=== PATIENT | male | born 1940 | race Caucasian/White ===

== ENCOUNTER 2020-04-10 16:01 | Emergency (ER) | payer OTHER, MEDICAID ==
[~2020-04-10] VITALS: Ht 172.7 cm; Wt 90.7 kg
[2020-04-10 16:11] VITALS: BP_SYST 141
--- NOTE | 2020-04-10 16:42 | NUR ---
Patient to [facility] for evaluation. Side rails up.
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
--- NOTE | 2020-04-10 16:43 | NUR ---
Phleb at bedside.
--- NOTE | 2020-04-10 17:01 | NUR ---
ER at bedside examining patient.
[2020-04-10 17:06] LABS: BASOPHILS # (AUTO) 0.2 K/uL (0.0-0.2); EOSINOPHILS % (AUTO) 0.2 % (0.0-4.0); HEMATOCRIT 33.6 % (36-54); HEMOGLOBIN 11.1 g/dL (14.0-18.0); LYMPHOCYTES # (AUTO) 0.7 K/uL (1.0-5.5); LYMPHOCYTES % (AUTO) 8.7 % (20.5-51.5); MEAN CORPUSCULAR HEMOGLOBIN 33 pg (27-31); MEAN CORPUSCULAR HGB CONC 33 % (32-36); MEAN CORPUSCULAR VOLUME 101 fL (79.0-98.0); MONOCYTES # (AUTO) 1.1 K/uL (0.0-1.0); MONOCYTES % (AUTO) 14.4 % (1.7-9.3); NEUTROPHILS # (AUTO) 5.9 K/uL (1.8-7.7); NEUTROPHILS % (AUTO) 73.7 % (40.0-70.0); PLATELET COUNT (AUTO) 184 K/uL (130-430); RED BLOOD CELL COUNT(AUTO) 3.34 MIL/uL (4.2-6.2)
[2020-04-10 17:09] LABS: ANION GAP 10 (5-15); CALCIUM 8.6 mg/dL (8.4-11.0); CHLORIDE 106 mmol/L (98-107); CREATININE 2.26 mg/dL (0.55-1.30); GLUCOSE 118 mg/dL (70-99); POTASSIUM 4.3 mmol/L (3.5-5.1); SODIUM SERUM 140 mmol/L (136-145); UREA NITROGEN, BLOOD 43 mg/dL (8-21)
[2020-04-10 17:15] LABS: ALANINE AMINOTRANSFERASE 59 U/L (12-78); ALBUMIN 3.2 g/dL (3.4-4.8); ASPARTATE AMINOTRANSFERASE 76 U/L (10-37); TOTAL BILIRUBIN 0.7 mg/dL (0.0-1.0)
[2020-04-10 17:16] LABS: CHOLESTEROL 163 mg/dL (<200); HDL CHOLESTEROL 51 mg/dL (>45); LDL CHOLESTEROL 74 mg/dL (<100); TRIGLYCERIDES 117 mg/dL (30-150)
[2020-04-10 17:22] LABS: ALCOHOL, BLOOD < 3 mg/dL (<10)
[2020-04-10 17:23] LABS: ACETAMINOPHEN < 1 ug/mL (1-30)
[2020-04-10 17:45] VITALS: BP_SYST 141
--- NOTE | 2020-04-10 17:45 | NUR ---
Patient to be transferred to [facility] Room 50 B. Is being transferred due to higher level of care. Receiving facility has accepting physician and available space. ER physician has signed transfer form. Patient or responsible libertarian has agreed to transfer and signed form. Patient belongings inventoried and will be sent with patient. Copy of nursing notes, lab reports, EKG, Physicians Orders and X-rays to be sent with patient. Report called to YASSINE Mancia at receiving facility. Receiving physician is Dr. Cathy trotter service has been called for transfer.
== END 2020-04-10 17:45 ==
LOC: EDBD → SED 16:01
DX: Z13.30 Encounter for screening examination for mental health and behavioral disorders, unspecified (principal)
CPT/HCPCS: 36415; 80053; 80061; 83036; 85025; 87081; 99285; G0480; G0481; G0482

== ENCOUNTER 2020-04-12 11:04 | Outpatient (CLI) | payer OTHER | END 2020-04-12 20:53 | disposition home or self-care (01) | LOC: SCT 11:04 | PROVIDERS: ATTEND Psychiatry & Neurology Psychiatry | DX: G31.9 Degenerative disease of nervous system, unspecified (principal); I62.00 Nontraumatic subdural hemorrhage, unspecified | CPT/HCPCS: 70450-TC ==

== ENCOUNTER 2020-07-20 23:14 | Inpatient (IN) | payer OTHER, MEDICAID, SELFPAY ==
[~2020-07-20] VITALS: Ht 170.2 cm; Wt 62.1 kg
[2020-07-20 23:14] VITALS: BP_SYST 104
--- NOTE | 2020-07-20 23:14 | NUR ---
Patient to ER bed 6 to gown for evaluation. Side rails up, place patient on cardiac cath lab manager and pulse ox.
--- NOTE | 2020-07-20 23:20 | NUR ---
# 20 gauge angiocath placed to LAC. Use of asceptic technique. Opsite placed over site. Blood return noted. Blood for lab drawn from site. Flushed with 10 cc of normal saline. No evidence of infiltration noted. Patient tolerated well.
[2020-07-20] MEDS ORDERED: NACL 0.9% 1,000 ML IV ONE (23:30)
--- NOTE | 2020-07-20 23:30 | NUR ---
Dr. Ding bedside for pt eval
--- NOTE | 2020-07-20 23:35 | NUR ---
Moy ACOSTA to ED from [facility] for evaluation of a 1-week history of reduced eating and drinking associated with dehydration and generalized weakness. Patient is under the care of Dr. Sagastume, who requested patient be brought to ED for further evaluation and treatment. No relieving or exacerbating factors. No other complaints noted VSS no s/s of acute distress Resting on gurney rails up
[2020-07-20 23:39] LABS: BASOPHILS % (AUTO) 0.3 % (0.0-2.0); EOSINOPHILS % (AUTO) 0.1 % (0.0-4.0); HEMOGLOBIN 13.4 g/dL (14.0-18.0); LYMPHOCYTES # (AUTO) 1.2 K/uL (1.0-5.5); LYMPHOCYTES % (AUTO) 11.1 % (20.5-51.5); MEAN CORPUSCULAR HEMOGLOBIN 32 pg (27-31); MEAN CORPUSCULAR HGB CONC 33 % (32-36); MEAN CORPUSCULAR VOLUME 99 fL (79.0-98.0); MONOCYTES # (AUTO) 0.4 K/uL (0.0-1.0); MONOCYTES % (AUTO) 4.1 % (1.7-9.3); NEUTROPHILS # (AUTO) 9.1 K/uL (1.8-7.7); NEUTROPHILS % (AUTO) 84.4 % (40.0-70.0); PLATELET COUNT (AUTO) 271 K/uL (130-430); RED BLOOD CELL COUNT(AUTO) 4.16 MIL/uL (4.2-6.2); RED CELL DISTRIBUTION WIDTH 14.8 % (9.0-15.0); WHITE BLOOD COUNT (AUTO) 10.8 K/uL (4.8-10.8)
[2020-07-20] MEDS ORDERED: LEVO150T8 PO (23:39)
--- NOTE | 2020-07-20 23:40 | NUR ---
# 16 FR Alfonso catheter with use of sterile technique. Bedside drainage bag placed below level of bladder. Urine sample collected and sent to lab. Pt tolerated procedure well. Patient arrived with alfonso in place, changed due to standard of practice prior to admission. Patient unable to toilet self.
[2020-07-20] MEDS ORDERED: PRO40 PO (23:41)
[2020-07-20] MEDS ORDERED: LAMO50TA3 PO (23:42)
[2020-07-20] MEDS ORDERED: APIX5TAB4 PO (23:42)
--- NOTE | 2020-07-20 23:43 | NUR ---
swabbed Covid-19 as order and sent to lab.
[2020-07-20] MEDS ORDERED: SENN8.6T19 PO (23:44)
[2020-07-20] MEDS ORDERED: VALP250C3 PO (23:45)
[2020-07-20] MEDS ORDERED: CLON1TAB12 PO (23:45)
[2020-07-20] MEDS ORDERED: NOR10 PO (23:46)
[2020-07-20] MEDS ORDERED: MULT-1100 PO (23:47)
[2020-07-20] MEDS ORDERED: POLY17PO4 PO (23:48)
[2020-07-20] MEDS ORDERED: QUET50TA PO (23:49)
[2020-07-20] MEDS ORDERED: QUET150T2 PO (23:49)
[2020-07-20] MEDS ORDERED: TAMS-11 PO (23:50)
[2020-07-20] MEDS ORDERED: FINA5TAB3 PO (23:50)
[2020-07-20] MEDS ORDERED: METO-540 (23:51)
--- NOTE | 2020-07-20 23:53 | NUR ---
Radiology at bedside for Portable X Ray, well tolerated
[2020-07-20 23:55] LABS: ANION GAP 8 (5-15); CALCIUM 9.3 mg/dL (8.4-11.0); CREATININE 2.16 mg/dL (0.55-1.30); GLUCOSE 145 mg/dL (70-99); POTASSIUM 3.5 mmol/L (3.5-5.1); UREA NITROGEN, BLOOD 63 mg/dL (8-21)
[2020-07-20 23:56] LABS: INR 1.4 (0.80-1.20); PROTHROMBIN TIME 13.9 SECS (9.5-12.5)
--- NOTE | 2020-07-20 23:56 | NUR ---
Medication reconciliation completed with information provided by [facility]. Any prior medication reconciliation on file was reviewed and corrected.
[2020-07-21 00:03] LABS: ALANINE AMINOTRANSFERASE 19 U/L (12-78); ALBUMIN 2.3 g/dL (3.4-4.8); ASPARTATE AMINOTRANSFERASE 34 U/L (10-37); TOTAL BILIRUBIN 0.4 mg/dL (0.0-1.0)
[2020-07-21 00:05] LABS: CHLORIDE 124 mmol/L (98-107); SODIUM SERUM 162 mmol/L (136-145)
[2020-07-21 00:17] LABS: BILIRUBIN,URINE NEGATIVE (NEGATIVE); BLOOD, URINE NEGATIVE (NEGATIVE); CLARITY/URINE CLEAR (CLEAR); COLOR,URINE YELLOW (YELLOW); GLUCOSE,URINE NEGATIVE (NEGATIVE); KETONES,URINE TRACE (NEGATIVE); LEUKOCYTE ESTERASE ,URINE NEGATIVE (NEGATIVE); NITRITE, URINE NEGATIVE (NEGATIVE); PH,URINE 5.5 (5.0-8.0); PROTEIN URINE TRACE (NEGATIVE); UROBILINOGEN,URINE 0.2 (0.2-1.0)
[2020-07-21] MEDS ORDERED: LORazepam 2 MG/ML VIAL IVP ONE (00:30)
--- NOTE | 2020-07-21 00:39 | NUR ---
VSS, pt remains "itchy" scratching on shoulders and arms and legs. Dr. Ding aware.
[2020-07-21] MEDS ORDERED: cefTRIAXone 1 GM in D5W 50 ML IV ONE (00:45)
[2020-07-21] MEDS ORDERED: KCL 20 mEq in D5/0.45NS 1000mL 1,000 ML IV SCH (00:45)
[2020-07-21] MEDS ORDERED: cefTRIAXone 1 GM VIAL ONE (01:01)
[2020-07-21] MEDS ORDERED: DIPHENHYDRAMINE INJ 50 MG/ML VIAL IVP ONE (01:15)
--- NOTE | 2020-07-21 01:18 | NUR ---
ADMIT NOTE Received pt from ER to the floor with a diagnosis of dehydration. Admission process initiated. patient oriented to pain management, safety and call light-pt is confused.
--- NOTE | 2020-07-21 01:20 | NUR ---
Patient will be admitted to care of Dr. Sagastume. Admitted to Tele unit. Will go to room 121. Belongings list completed. Complete and up to date summary report printed. SBAR report to be given at bedside with opportunity for questions.
--- NOTE | 2020-07-21 01:20 | NUR ---
Transfer to Tele via ACLS protocol. Licensed nurse present. IV present no signs or symptoms of infiltration.
[2020-07-21] MEDS ORDERED: DIPHENHYDRAMINE INJ 50 MG/ML VIAL ONE (01:25)
[2020-07-21 01:36] VITALS: BP_SYST 127
[2020-07-21] MEDS ORDERED: KCL 20 mEq in D5/0.45NS 1000mL 1,000 ML IV ONE (02:18)
--- NOTE | 2020-07-21 02:21 | NUR ---
according to [facility] where pt came from, they didn't give the flu vaccine to the pt.
--- NOTE | 2020-07-21 04:13 | NUR ---
Rounds: Patient is asleep in bed. No acute distress on 4L NC. IV site to left AC receiving IV fluids as ordered. Safety, fall precautions in place. Call light is with patient. Will continue to monitor.
--- NOTE | 2020-07-21 06:02 | NUR ---
Closing note: Patient is resting quietly in bed, no acute distress. Even, unlabored breathing on 4L O2 via nasal cannula. IV fluids infusing as ordered to left AC, no infiltration. Lopes catheter draining yellow urine to gravity. All needs met. Safety, fall, COVID isolation precautions in place. Will endorse care to dayshift RN.
[2020-07-21] MEDS ORDERED: FLU VACC QS2020-21(65UP)/PF 0.7 ML/SYRINGE I.M. PRN (06:15)
--- NOTE | 2020-07-21 06:32 | NUR ---
Influenza vaccine: Patient is alert and oriented to name only. Called and spoke with patient's daughter Erika Aragon at [phone] per face sheet and explained influenza vaccine indications and side effects. Okay to administer vaccine per patient's daughter. Called off-site pharmacy to have medication verified for administration, but line was silent after connecting to the pharmacy leasing representative. Will endorse to dayshift to have day pharmacy verify.
--- NOTE | 2020-07-21 08:00 | NUR ---
Initial notes In bed, asleep, breathing even and unlabored. no acute distress noted. On o2 4l sat at 95%. afebrile. IVF infusing well. Safety precaution observed. bed alarm on. Sinus on the monitor.
[2020-07-21 08:23] VITALS: BP_SYST 133
--- NOTE | 2020-07-21 09:23 | NUR ---
Nutrition Update Leo Scale 12 noted. Pt admitted for dehydration. Diet: mechanical soft BMI: 21.5 kg/m2 RD to follow per nutrition care standards.
--- NOTE | 2020-07-21 11:30 | NUR ---
Notes Patient keeps moving, tried to give water to drink but patient refused. No distress noted. IVF infusing well. will monitor.
[2020-07-21 12:00] VITALS: BP_SYST 111
--- NOTE | 2020-07-21 13:15 | NUR ---
MD ROUNDS Seen by Dr. Contreras at bedside.
[2020-07-21 13:24] LABS: BASOPHILS # (AUTO) 0.1 K/uL (0.0-0.2); BASOPHILS % (AUTO) 0.5 % (0.0-2.0); EOSINOPHILS % (AUTO) 0.4 % (0.0-4.0); HEMATOCRIT 38.7 % (36-54); HEMOGLOBIN 12.5 g/dL (14.0-18.0); LYMPHOCYTES # (AUTO) 1.1 K/uL (1.0-5.5); LYMPHOCYTES % (AUTO) 9.3 % (20.5-51.5); MEAN CORPUSCULAR HEMOGLOBIN 32 pg (27-31); MEAN CORPUSCULAR HGB CONC 32 % (32-36); MEAN CORPUSCULAR VOLUME 99 fL (79.0-98.0); MONOCYTES # (AUTO) 0.5 K/uL (0.0-1.0); MONOCYTES % (AUTO) 4.3 % (1.7-9.3); NEUTROPHILS % (AUTO) 85.5 % (40.0-70.0); PLATELET COUNT (AUTO) 256 K/uL (130-430); RED BLOOD CELL COUNT(AUTO) 3.93 MIL/uL (4.2-6.2); RED CELL DISTRIBUTION WIDTH 14.6 % (9.0-15.0); WHITE BLOOD COUNT (AUTO) 11.7 K/uL (4.8-10.8)
[2020-07-21 13:41] LABS: ALANINE AMINOTRANSFERASE 20 U/L (12-78); ALBUMIN 2.3 g/dL (3.4-4.8); ANION GAP 13 (5-15); ASPARTATE AMINOTRANSFERASE 38 U/L (10-37); CALCIUM 8.1 mg/dL (8.4-11.0); CREATININE 1.73 mg/dL (0.55-1.30); GLUCOSE 96 mg/dL (70-99); POTASSIUM 3.7 mmol/L (3.5-5.1); TOTAL BILIRUBIN 0.4 mg/dL (0.0-1.0); UREA NITROGEN, BLOOD 60 mg/dL (8-21)
[2020-07-21 13:51] LABS: CHLORIDE 124 mmol/L (98-107); SODIUM SERUM 163 mmol/L (136-145)
[2020-07-21] MEDS ORDERED: POLYETHYLENE GLYCOL 3350, 17 GM/ POWD.PACK PO PRN (14:00)
[2020-07-21] MEDS ORDERED: LAMOTRIGINE PO SCH (14:00)
[2020-07-21] MEDS ORDERED: SENNOSIDES 8.6 MG TABLET PO PRN (14:00)
--- NOTE | 2020-07-21 14:24 | NUR ---
CONSULTATION PAGED/CALLED Reason for Consultation: SCHIZOPHRENIA Person Who was Notified: EDDIE Consulting Physician: [employer] Supervisor Specialty: PSYCH Ordering Physician: ALMITA ARELLANO IS [employer] FOR [employer]
[2020-07-21] MEDS ORDERED: VALPROIC ACID 250 MG CAPSULE (DEPAKENE) PO ONE (15:00)
[2020-07-21] MEDS ORDERED: PANTOPRAZOLE SODIUM 40 MG TAB PO ONE (15:00)
[2020-07-21] MEDS ORDERED: QUEtiapine FUMARATE 25 MG TABLET PO ONE (15:00)
[2020-07-21] MEDS ORDERED: METOPROLOL SUCCINATE 25 MG TAB.SR.24H (TOPROL XL) PO ONE (15:00)
[2020-07-21] MEDS ORDERED: MULTIVITS,CA,MINERALS/IRON/FA 1 TABLET PO ONE (15:00)
[2020-07-21] MEDS ORDERED: LamoTRIgine 25 MG TABLET PO ONE (15:00)
[2020-07-21] MEDS ORDERED: APIXABAN 2.5 MG TABLET PO ONE (15:00)
--- NOTE | 2020-07-21 15:15 | NUR ---
Notes Patient's is pulling out his Iv and removing his monitor, pt also aggressive and combative when trying to touch him.
--- NOTE | 2020-07-21 15:22 | NUR ---
NOTIFIED FAMILY AND MD RE-RESTRAINT DR RECIO MADE AWARE THAT PATIENT IS PULLING OUT MEDICAL LINES, NAKED, KEPT REMOVING HIS CLOTHES. AGITATED, COMBATIVE, ORDERED TO PUT RESTRAINT FOR PATIENT'S SAFETY. CHARLIE DAUGHTER MADE AWARE AND AGREED TO PUT THE RESTRAINT AND UNDERSTAND THAT PATIENT IS DEMENTED, BIPOLAR.
[2020-07-21] MEDS: KCL 20 mEq in D5W 1000 mL 1,000 ML IV SCH (15:52)
[2020-07-21 16:00] VITALS: BP_SYST 125
--- NOTE | 2020-07-21 16:00 | NUR ---
MEDS- PT DOES NOT WANT TO TAKE ANYTHING BY MOUTH. REFUSED TO EAT, DRINK AND TO TAKE HIS MEDS THAT WAS PUT IN APPLE SAUCE AT THIS TIME.
[2020-07-21] MEDS ORDERED: LORazepam 2 MG/ML VIAL IVP PRN (18:15)
--- NOTE | 2020-07-21 18:30 | NUR ---
Notes- Awake, does not follow command, does not open is mouth when you tried to feed him at this time. on bilateral wrist restraints, circulation intact. IVF infusing well. No acute distress noted. will endorse
--- NOTE | 2020-07-21 19:45 | NUR ---
Pt was received lying in bed awake and oriented to his name only. Pt is confused and disoriented x3. Pt is on oxygen at 3L/min per NC and Oxygen saturation is 100%. No respiratory distress or seizure activity noted. Bilateral soft wrist restraints are on and no circulatory impairment noted. Lopes Catheter to gravity drainage is draining yellowish urine. IVF of D5W + 20 Meq KCL is infusing well in LAC at 75ml/hr without any signs of infiltration. Fall, Droplet Isolation, Seizure and Safety precautions are in place.
[2020-07-21 20:00] VITALS: BP_SYST 112
[2020-07-21] MEDS ORDERED: VALPROIC ACID 250 MG CAPSULE (DEPAKENE) PO SCH (21:00)
[2020-07-21 21:01] LABS: ANION GAP 9 (5-15); CALCIUM 8.7 mg/dL (8.4-11.0); CREATININE 1.59 mg/dL (0.55-1.30); GLUCOSE 104 mg/dL (70-99); POTASSIUM 3.6 mmol/L (3.5-5.1); UREA NITROGEN, BLOOD 58 mg/dL (8-21)
[2020-07-21 21:05] LABS: CHLORIDE 127 mmol/L (98-107); SODIUM SERUM 163 mmol/L (136-145)
--- NOTE | 2020-07-21 21:36 | NUR ---
PAGED PAGED DOCTOR RECIO FOR CRITICAL LABS
--- NOTE | 2020-07-21 21:38 | NUR ---
Critical Lab results (Sodium 163 and Chloride 127) relayed to Dr. Contreras and no new orders given.
[2020-07-21] MEDS: APIXABAN 2.5 MG TABLET PO SCH (21:39)
[2020-07-21] MEDS: TAMSULOSIN HCL 0.4 MG CAP PO SCH (21:40)
[2020-07-21] MEDS: FINASTERIDE 5 MG TABLET (PROSCAR) PO SCH (21:41)
[2020-07-21] MEDS: MIRTAZAPINE 15 MG TABLET PO SCH (21:41)
[2020-07-21] MEDS: LamoTRIgine 25 MG TABLET PO SCH (21:41)
[2020-07-21] MEDS: QUEtiapine FUMARATE 25 MG TABLET PO SCH (21:41)
--- NOTE | 2020-07-21 23:00 | NUR ---
No respiratory distress or seizure activity noted. IVF is infusing well in [facility].
[2020-07-21] MEDS: cefTRIAXone 1 GM in D5W 50 ML IV SCH (23:24)
[2020-07-22] VITALS (7 sets, daily range): BP systolic 125–143
--- NOTE | 2020-07-22 01:00 | NUR ---
Pt is resting quietly in bed. No seizure activity or respiratory distress noted. IVF is infusing well in LAC. Fall, Droplet Isolation, Seizure and Safety precautions are in place.
[2020-07-22 02:31] LABS: BILIRUBIN,URINE NEGATIVE (NEGATIVE); BLOOD, URINE 2+ (NEGATIVE); CLARITY/URINE CLEAR (CLEAR); COLOR,URINE YELLOW (YELLOW); GLUCOSE,URINE NEGATIVE (NEGATIVE); KETONES,URINE TRACE (NEGATIVE); LEUKOCYTE ESTERASE ,URINE NEGATIVE (NEGATIVE); NITRITE, URINE NEGATIVE (NEGATIVE); PROTEIN URINE TRACE (NEGATIVE); UROBILINOGEN,URINE 0.2 (0.2-1.0)
[2020-07-22 02:42] LABS: BACTERIA,URINE FEW /HPF (None Seen); RBC,URINE 20-50 /HPF (0-3); WBC,URINE 0-3 /HPF (0-3)
--- NOTE | 2020-07-22 03:00 | NUR ---
Pt is sleeping without any respiratory distress noted. IVF is infusing well in LAC. Bed alarm is on and bed is in the lowest/locked positions.
--- NOTE | 2020-07-22 05:00 | NUR ---
No acute distressnoted at this time. IVF is infusing well in [facility]. Bed alarm is on and bed is in the lowest/locked positions.
[2020-07-22] MEDS: KCL 20 mEq in D5W 1000 mL 1,000 ML IV SCH ×3 (06:18→16:41)
[2020-07-22] MEDS: LEVOTHYROXINE SODIUM 0.15 MG TABLET PO SCH (06:24)
--- NOTE | 2020-07-22 06:24 | NUR ---
Pt is fully awake and not in any distress. Scheduled Levothyroxine tablet given with apple juice after it was crushed. No difficulty swallowing noted. IVF is infusing well in LAC.
--- NOTE | 2020-07-22 07:20 | NUR ---
Opening Note patient in bed resting, alfonso catheter intact and draining by gravity, IV site is patent and infusing well, bed locked and at low position, call light within reach, fall/aspiration/seizure precautions put in place, will monitor patient for any changes.
[2020-07-22 07:30] LABS: BASOPHILS % (AUTO) 0.4 % (0.0-2.0); EOSINOPHILS # (AUTO) 0.5 K/uL (0.0-0.4); EOSINOPHILS % (AUTO) 4.6 % (0.0-4.0); HEMATOCRIT 38.2 % (36-54); HEMOGLOBIN 12.2 g/dL (14.0-18.0); LYMPHOCYTES # (AUTO) 1.4 K/uL (1.0-5.5); LYMPHOCYTES % (AUTO) 13.5 % (20.5-51.5); MEAN CORPUSCULAR HEMOGLOBIN 32 pg (27-31); MEAN CORPUSCULAR HGB CONC 32 % (32-36); MEAN CORPUSCULAR VOLUME 99 fL (79.0-98.0); MONOCYTES # (AUTO) 0.7 K/uL (0.0-1.0); MONOCYTES % (AUTO) 6.5 % (1.7-9.3); NEUTROPHILS # (AUTO) 7.5 K/uL (1.8-7.7); PLATELET COUNT (AUTO) 249 K/uL (130-430); RED BLOOD CELL COUNT(AUTO) 3.86 MIL/uL (4.2-6.2); RED CELL DISTRIBUTION WIDTH 14.7 % (9.0-15.0)
[2020-07-22 08:05] LABS: ALANINE AMINOTRANSFERASE 24 U/L (12-78); ALBUMIN 2.1 g/dL (3.4-4.8); ANION GAP 9 (5-15); ASPARTATE AMINOTRANSFERASE 35 U/L (10-37); CALCIUM 8.7 mg/dL (8.4-11.0); CREATININE 1.41 mg/dL (0.55-1.30); GLUCOSE 95 mg/dL (70-99); POTASSIUM 3.8 mmol/L (3.5-5.1); TOTAL BILIRUBIN 0.2 mg/dL (0.0-1.0); UREA NITROGEN, BLOOD 51 mg/dL (8-21)
[2020-07-22 08:20] LABS: SODIUM SERUM 162 mmol/L (136-145)
[2020-07-22 08:21] LABS: CHLORIDE 126 mmol/L (98-107)
[2020-07-22] MEDS: APIXABAN 2.5 MG TABLET PO SCH ×2 (09:14→21:00)
[2020-07-22] MEDS: MULTIVITS,CA,MINERALS/IRON/FA 1 TABLET PO SCH (09:15)
[2020-07-22] MEDS: PANTOPRAZOLE SODIUM 40 MG TAB PO SCH (09:15)
[2020-07-22] MEDS: QUEtiapine FUMARATE 25 MG TABLET PO SCH ×3 (09:15→21:00)
[2020-07-22] MEDS: LamoTRIgine 25 MG TABLET PO SCH ×2 (09:15→21:00)
[2020-07-22] MEDS: METOPROLOL SUCCINATE 25 MG TAB.SR.24H (TOPROL XL) PO SCH (09:16)
--- NOTE | 2020-07-22 09:26 | NUR ---
RN Rounds/Medications patient in bed resting, no signs of distress noted, respirations even and unlabored, vital signs stable, administered medications ordered per MD, patient tolerated well, patient ate a few small bites of his breakfast and refused to eat the rest of his breakfast, safety measures were maintained, will continue to monitor patient for any changes.
[2020-07-22] MEDS ORDERED: VALPROIC ACID ORAL SYRUP 250 MG/5 ML UDC PO ONE (11:30)
[2020-07-22] MEDS ORDERED: amLODIPine BESYLATE 10 MG TABLET PO ONE (12:45)
--- NOTE | 2020-07-22 12:45 | NUR ---
RN Rounds/Foam dressings placed patient in bed resting, no signs of distress noted, respirations even and unlabored, patient ate 3 teaspoons of food and refused to eat the rest of his lunch, foam dressings were placed on patients feet and knee, safety and isolation measures were maintained.
--- NOTE | 2020-07-22 13:07 | NUR ---
RN Rounds/medication patient in bed resting, no signs of distress noted, patient refused to take medication ordered per MD at this time, no other needs at this time, safety measures maintained, will continue to monitor patient for any changes.
--- NOTE | 2020-07-22 14:30 | NUR ---
Spoke to MD ben Contreras over the phone patient's covid results and swallow evaluation, will follow up with new orders.
--- NOTE | 2020-07-22 16:08 | NUR ---
RN Rounds/Vital signs patient in bed laying down, respirations even and unlabored, vital signs within normal limits, administered medication ordered per MD, patient tolerated well, safety measures maintained.
--- NOTE | 2020-07-22 18:40 | NUR ---
Closing Note patient in bed resting, a/o x 1, reoriented patient to place time and event, respirations even and unlabored, safety measures maintained through out shift, bed locked and at low position, call light within reach, fall aspiration and seizure precautions maintained, endorsed patient care to oncoming shift commander nurse.
--- NOTE | 2020-07-22 19:15 | NUR ---
change of shift.pt.presents affect;aggressive.loc:confused.language barrier extant;mongolian.i have attended to the pt.in mongolian; to facilitate communication.pt.presents non-verbal speech status.pt.presents alfonso cath intact;patent urine content.pt.presents iv access intact;patent iv fluids infusing.pt.receiving the administration o2 therapy via the nasal cannulae.general status stable. respiratory status stable.call light/telephone w/in access of the pt.
[2020-07-22 19:53] LABS: POTASSIUM 4.4 mmol/L (3.5-5.1); SODIUM SERUM 158 mmol/L (136-145)
[2020-07-22 19:57] LABS: ANION GAP 11 (5-15); CALCIUM 8.1 mg/dL (8.4-11.0); CHLORIDE 124 mmol/L (98-107); GLUCOSE 124 mg/dL (70-99); UREA NITROGEN, BLOOD 44 mg/dL (8-21)
--- NOTE | 2020-07-22 20:00 | NUR ---
pt.assessed.v/s assessed values w/in normal limits.per flacc pain mgx pt.absent facial grimaces/body posturing.pt assessed for cleanliness.pt.repositioned.iv access intact;patent iv fluids infusing.alfonso cath intact;patent urine content present.i attempted to converse w the pt.pt.did not verbally respond. general status stable.respiratory status stable;unlabored;02-sat%=98%.restraints assessed in place.skin/circulation assessed wnl.call light/telephone placed w/in access of the pt. lab page.i was apprised of a critical lab value.to page w/the chemistry lab values had ordered earlier.
--- NOTE | 2020-07-22 20:16 | NUR ---
Paged Dr. Contreras, systems development consultant for Dr. Sagastume s/w Melvina
[2020-07-22] MEDS: MIRTAZAPINE 15 MG TABLET PO SCH (21:00)
[2020-07-22] MEDS: VALPROIC ACID ORAL SYRUP 250 MG/5 ML UDC PO SCH (21:00)
[2020-07-22] MEDS: TAMSULOSIN HCL 0.4 MG CAP PO SCH (21:00)
[2020-07-22] MEDS: FINASTERIDE 5 MG TABLET (PROSCAR) PO SCH (21:00)
--- NOTE | 2020-07-22 21:00 | NUR ---
2100pmedications.i have attempted to administer the medications;po to no avail.pt.refused to ingest the medications.i attempted a trial swallow capacity w apple sauce p/t to the administration of the 2100pmedications.pt.had refused the apple sauce.
--- NOTE | 2020-07-22 22:00 | NUR ---
pt.assessed.pt.assessed for cleanliness.pt repositioned.iv access intact;patent iv fluids infusing.per flacc pain mgx pt.absent facial grimaces/body posturing.alfonso cath intact;patent urine content present.general status stable.respirtory status stable;unlabored: 02-sat%=98%.call light/telephone placed w/in access of the pt.restraints;wrist,bilateral assessed intact skin/circulation assessed wnl.
--- NOTE | 2020-07-23 | NUR ---
pt.assessed.v/s assessed values w/in normal limits.per flacc pain mgx pt.absent facial grimaces/body/posturing.iv access intact; patent iv fluids infusing.i have administered rocephin;abx ivpb midnight.dose.pt.assessed for cleanliness.pt.repositioned.restraints assessed intact.skin/circulation wnl. general status stable.respiratory status stable;unlabored.02-sat%=98%.call light/telephone placed w/in access of the pt.alfonso cath intact;patent urine content present.
[2020-07-23] MEDS: cefTRIAXone 1 GM in D5W 50 ML IV SCH ×2 (00:36→23:50)
[2020-07-23] MEDS: KCL 20 mEq in D5W 1000 mL 1,000 ML IV SCH ×2 (00:38→04:47)
--- NOTE | 2020-07-23 02:00 | NUR ---
pt.assessed.pt.assessed for cleanliness.pt.repositioned.pt.presents affect;restless.restraints assessed in place:skin/circulation assessed wnl.per flacc pain mgx pt.absent facial grimaces/body posturing.general status stable.respiratory status stable;unlabored:02-sat%=96%.call light/telephone placed w/in access of the pt.iv acces intact;patent iv fluids infusing.
[2020-07-23 03:46] VITALS: BP_SYST 130
--- NOTE | 2020-07-23 05:46 | NUR ---
Swallow Eval Consult Called and left a message to Angie regarding swallow eval, ordered by Dr. Contreras
[2020-07-23] MEDS: LEVOTHYROXINE SODIUM 0.15 MG TABLET PO SCH (06:12)
--- NOTE | 2020-07-23 06:12 | NUR ---
pt.assessed.i have attempted a trial swallow capacity w apple sauce.pt.has refused the attempt to ingest oral medication;synthroid not administered.pt.assessed for cleanliness.pt.repositioned.iv access intact;patent iv fluids infusing.alfonso cath intact;patent urine content present.per flacc pain mgx pt.absent facial grimaces/body posturing.call light/telephone placed w/in access of the pt.restraints assessed in place.skin/circulation wnl.
[2020-07-23 06:14] LABS: BASOPHILS # (AUTO) 0.1 K/uL (0.0-0.2); BASOPHILS % (AUTO) 0.9 % (0.0-2.0); EOSINOPHILS # (AUTO) 0.7 K/uL (0.0-0.4); EOSINOPHILS % (AUTO) 7.2 % (0.0-4.0); HEMATOCRIT 35.5 % (36-54); HEMOGLOBIN 11.5 g/dL (14.0-18.0); LYMPHOCYTES % (AUTO) 10.3 % (20.5-51.5); MEAN CORPUSCULAR HEMOGLOBIN 32 pg (27-31); MEAN CORPUSCULAR HGB CONC 33 % (32-36); MEAN CORPUSCULAR VOLUME 97 fL (79.0-98.0); MONOCYTES # (AUTO) 0.7 K/uL (0.0-1.0); MONOCYTES % (AUTO) 7.7 % (1.7-9.3); NEUTROPHILS # (AUTO) 6.9 K/uL (1.8-7.7); NEUTROPHILS % (AUTO) 73.9 % (40.0-70.0); PLATELET COUNT (AUTO) 244 K/uL (130-430); RED BLOOD CELL COUNT(AUTO) 3.65 MIL/uL (4.2-6.2); RED CELL DISTRIBUTION WIDTH 14.6 % (9.0-15.0); WHITE BLOOD COUNT (AUTO) 9.3 K/uL (4.8-10.8)
[2020-07-23 06:33] LABS: ALANINE AMINOTRANSFERASE 23 U/L (12-78); ALBUMIN 1.9 g/dL (3.4-4.8); ANION GAP 7 (5-15); ASPARTATE AMINOTRANSFERASE 29 U/L (10-37); CALCIUM 8.1 mg/dL (8.4-11.0); CREATININE 1.25 mg/dL (0.55-1.30); GLUCOSE 94 mg/dL (70-99); POTASSIUM 3.9 mmol/L (3.5-5.1); SODIUM SERUM 155 mmol/L (136-145); TOTAL BILIRUBIN 0.1 mg/dL (0.0-1.0); UREA NITROGEN, BLOOD 36 mg/dL (8-21)
--- NOTE | 2020-07-23 07:33 | NUR ---
OPENING NOTE Patient resting in the bed. No acute distress. On O2 2L/min via NC. Skin warm and dry to touch. IV intact to LAC, no redness, no swelling, no drainage. On D5W with KCl 20mEq at 75ml/hr, infusing well. F/C intact, drain gravity. Bilateral soft restraint in placed, pulse present. Able to move fingers and hands without problem. Safety measure maintained. Call light within reached. Bed locked in low position, padded side rails up, bed alarm on. Will continue to monitor.
[2020-07-23 07:45] VITALS: BP_SYST 122
[2020-07-23 08:07] LABS: CHLORIDE 122 mmol/L (98-107)
--- NOTE | 2020-07-23 08:59 | NUR ---
CRITICAL LAB: [id number], [id number] Called and received the call back from Srinivas Gonsales. Reported the patient's vyfbokfa=349, gynkuj=300. Dr. Sagastume with order of D5 1/2NS with KCl 20Meq at 75ml/hr and D/C D5W with KCl 20Meq at 75ml/hr. Order read back and okay to Dr. Sagasutme.
[2020-07-23] MEDS: PANTOPRAZOLE SODIUM 40 MG TAB PO SCH (09:37)
[2020-07-23] MEDS: MULTIVITS,CA,MINERALS/IRON/FA 1 TABLET PO SCH (09:38)
[2020-07-23] MEDS: METOPROLOL SUCCINATE 25 MG TAB.SR.24H (TOPROL XL) PO SCH (09:38)
[2020-07-23] MEDS: LamoTRIgine 25 MG TABLET PO SCH ×2 (09:38→21:00)
[2020-07-23] MEDS: QUEtiapine FUMARATE 25 MG TABLET PO SCH ×3 (09:39→21:00)
[2020-07-23] MEDS: APIXABAN 2.5 MG TABLET PO SCH ×2 (09:40→21:00)
[2020-07-23] MEDS: VALPROIC ACID ORAL SYRUP 250 MG/5 ML UDC PO SCH ×2 (09:40→21:00)
--- NOTE | 2020-07-23 09:42 | NUR ---
AM MED Patient refused Depakene oral syrup, the other pills offered 4 times before he took it. Safety measure maintained. Bed locked in low position, padded side rails up, bed alarm on. Bilateral soft wrist restraint. pulse present, able to move fingers and hands without problem. Continue to monitor.
[2020-07-23] MEDS: KCL 20 mEq in D5/0.45NS 1000mL 1,000 ML IV SCH ×2 (10:54→22:26)
--- NOTE | 2020-07-23 11:25 | NUR ---
ROUND Patient resting in the bed. No acute distress. Continue on O2 2L/min via NC. IV intact, IVF infusing well. Bilateral soft wrist restraint in placed. Released Q 2hr, pulse present, able to move fingers and hands without problems. F/C intact, drain gravity. Safety measure maintained. Call light within reached. Bed locked in low position, padded side rails up, bed alarm on. Continue to monitor.
[2020-07-23 12:12] VITALS: BP_SYST 121
--- NOTE | 2020-07-23 13:19 | NUR ---
Dietitian Recommendations *Follow ST rec for diet or initiate alternative nutrition support if PO intake is not feasible. Please see Nutritional Assessment for details. DUDLEY, ZAIRE
--- NOTE | 2020-07-23 13:35 | NUR ---
ROUND Patient resting in the bed. No acute distress. Continue on O2 2L/min via NC. IV intact, IVF infusing well. Bilateral soft wrist restraint in placed, pulse present, able to move fingers and hands without problems. F/C intact, drain gravity. Safety measure maintained. Call light within reached. Bed locked in low position, padded side rails up, bed alarm on. Continue to monitor.
--- NOTE | 2020-07-23 14:12 | NUR ---
WOUND EVALUATION: Late note for 07/23/2020 at 1412 secondary to patient care. Wound Consult received from Dr. Sagastume. Thank you, Dr. Sagastume, for the consult. Patient received in a Maynor Bed with an Isoflex NICO mattress with low air-loss therapy initiated, awake, alert, and confused. Patient is unable to turn in bed independently. Leo Score is a 14. Past Medical History: Psychiatric disorder, Dementia, Schizophrenia Paranoia, Benign Prostatic Hypertrophy, Chronic Kidney Disease, Atrial Fibrillation, Seizure disorder, Gastroesophageal Reflux Disorder, Hypothyroidism, Anemia, bilateral heel Unstageable Pressure Ulcers. Recent Labs: WBC 9.3, RBC 3.65, hemoglobin 11.5, hematocrit 35.5,Sodium 135, chloride 122, BUN 36, creatinine 1.25, glucose 94, calcium 8.1, serum total protein 6.1, albumin 1.9, PT 13.9, INR 1.4. Microbiology: Blood culture results x2 in progress. MRSA screen results negative. Intrinsic factors that delay wound healing: Chronic Kidney Disease, Atrial Fibrillation, Anemia, severe Hypoalbuminemia. Extrinsic factors that delay wound healing: Decreased mobility. Wound Assessment: 1. Left Posterior Heel: Unstageable pressure ulcer, present on admission. Wound bed has 95% black soft eschar, 5% yellow soft eschar. No odor, scant yellow purulent drainage. Periwound intact. Wound measures 2.2 cm x 2.3 cm. Recommend: Cleanse wound with normal saline. Apply moisture barrier cream to periwound. Apply Venelex ointment to wound bed. Cover with foam dressing. Wrap with Oscar wrap. Perform wound care daily, and as needed for dressing soiling or dislodgment. Elevate and offload and float heel at all times with HeeLift boot. Check HeeLift boot during hourly rounds to ensure that heel is freely floating within HeeLift. 2. Right Lateral Posterior Heel: Unstageable pressure ulcer, present on admission. Wound bed has 95% black eschar, 5% yellow eschar. No odor, no drainage. Dry, stable. Periwound intact. Wound measures 2.4 cm x 2.0 cm. Recommend: Cover site with foam dressing. Change dressing and assess site daily, and as needed for dressing soiling or dislodgment. Elevate and offload and float heel at all times with HeeLift boot. Check HeeLift boot during hourly rounds to ensure that heel is freely floating within HeeLift. 3. Left Lateral Knee: Chronic wound, present admission. Wound has 100% black scab. No odor, no drainage. Dry, stable. Periwound intact. Wound measures 1.2 cm x 1.0 cm. 4. Left Lateral Knee, inferior and medial to site 3 Chronic wound, present admission. Wound has 100% black scab. No odor, no drainage. Dry, stable. Periwound intact. Wound measures 0.6 cm x 0.6 cm. Recommend: No dressings needed. Continue to monitor sites every shift. 5. Right fourth toe: Chronic wound, present admission. Wound has 100% black scab. No odor, no drainage. Dry, stable. Periwound intact. Wound measures 0.4 cm x 0.3 cm. Recommend: No dressing needed. Continue to monitor site every shift. Also recommend: Reposition patient every 2 hours with pillow support and off-load pressure areas with pillows for pressure re-distribution. Offload, elevate and float bilateral heels with pillows. Perform skin care and monitor skin integrity Q shift. Use moisture barrier cream on buttocks and other moisture susceptible areas QID and as needed for soiling. Maintain patient on a low air-loss mattress.
--- NOTE | 2020-07-23 14:25 | NUR ---
S.T. SWALLOW EVAL SWALLOW EVAL PERFORMED PT PRESENTS W/ SEV PRE-ORAL DYSPHAGIA W/ POOR INTEREST FOR P.O. HE STATED "I JUST DON'T WANT ANYTHING." P.O. TRIALS GIVEN SHOWED GENERALLY FUNCTIONAL BOLUS TRANSFER AND SWALLOW, BUT THE AMOUNT THAT THE PT WAS WILLING TO ACCEPT WAS NOT ADEQUATE TO FULLY ASSESS SWALLOW FUNCTION. PT IS AT VERY HIGH RISK FOR MALNUTRITION AND DEHYDRATION. UNABLE TO FULLY R/O RISK FOR ASPIRATION. REC: ALTERNATE METHOD FOR NUTRITION/HYDRATION. NURSE TODD NOTIFIED.
--- NOTE | 2020-07-23 15:05 | NUR ---
SEEN AND EXAMINED BY KHRIS HSU Reported to Dr. taylor, patient refused Depakene this morning, the other pills had been offered 4 times until he took it. ST swallow done but the patient not cooperative.
[2020-07-23 16:37] VITALS: BP_SYST 131
--- NOTE | 2020-07-23 17:05 | NUR ---
ROUND Patient resting in the bed. No acute distress. Continue on O2 2L/min via NC. IV intact, IVF infusing well. Bilateral soft wrist restraint in placed. Released Q 2hr, pulse present, able to move fingers and hands without problems. F/C intact, drain gravity. Safety measure maintained. Bed locked in low position, padded side rails up, bed alarm on. Call light within reached. Continue to monitor.
--- NOTE | 2020-07-23 18:52 | NUR ---
CLOSING NOTE Patient resting in the bed. No acute distress. On O2 2L/min via NC. Skin warm and dry to touch. IV intact to LAC, no redness, no swelling, no drainage. On D5 1/2NS with KCl 20mEq at 75ml/hr, infusing well. F/C intact, drain gravity. Bilateral soft restraint in placed, pulse present. Able to move fingers and hands without problem. All needs met. Safety measure maintained. Call light within reached. Bed locked in low position, padded side rails up, bed alarm on. Will endorse to night nurse.
[2020-07-23 19:50] VITALS: BP_SYST 127
--- NOTE | 2020-07-23 19:50 | NUR ---
INITIAL NOTE AT INITIAL ASSESSMENT, PATIENT IS RESTING IN BED, STABLE, NO SIGNS OF RESPIRATORY DISTRESS. PATIENT VERBALIZES NO PAIN. PLAN OF CARE FOR THE EVENING IS COMMUNICATED WITH THE PATIENT. PATIENT IS UNABLE TO DEMONSTRATES CORRECT USAGE OF CALL LIGHT AT THIS TIME DUE TO COGNITIVE IMPAIRMENT; FREQUENT ROUNDING WILL BE COMPLETED THROUGHOUT THE NIGHT TO MEET ALL PATIENT NEEDS. BED IS LOCKED, ALARMED, AND AT THE LOWEST LEVEL. FALL, SAFETY, ASPIRATION, AND RESPIRATORY PRECAUTIONS WILL BE TAKEN THROUGHOUT THE SHIFT.
[2020-07-23] MEDS: TAMSULOSIN HCL 0.4 MG CAP PO SCH (21:00)
[2020-07-23] MEDS: MIRTAZAPINE 15 MG TABLET PO SCH (21:00)
[2020-07-23] MEDS: FINASTERIDE 5 MG TABLET (PROSCAR) PO SCH (21:00)
[2020-07-24] VITALS: BP_SYST 131
[2020-07-24] MEDS: LEVOTHYROXINE SODIUM 0.15 MG TABLET PO SCH (06:25)
--- NOTE | 2020-07-24 06:30 | NUR ---
CLOSING NOTE PATIENT PULLED LIGHTLY AT TUBING THROUGHOUT THE NIGHT, REORIENTATION EFFORTS WERE SUCCESSFUL ALTHOUGH PATIENT HAD TO BE REORIENTED OFTEN DUE TO FORGETFULNESS. AT THIS TIME, PATIENT IS RESTING IN BED, STABLE, NO SIGNS OF RESPIRATORY DISTRESS. CALL LIGHT IS WITHIN REACH. BED IS LOCKED, ALARMED, AND AT THE LOWEST LEVEL. FALL, SAFETY, SEIZURE AND RESPIRATORY PRECAUTIONS HAVE BEEN TAKEN THROUGHOUT THE SHIFT. WILL CONTINUE TO MONITOR UNTIL SHIFT REPORT IS GIVEN AT BEDSIDE TO AM NURSE.
[2020-07-24 07:04] LABS: ANION GAP 9 (5-15); CALCIUM 8.4 mg/dL (8.4-11.0); CREATININE 1.18 mg/dL (0.55-1.30); GLUCOSE 102 mg/dL (70-99); PHOSPHORUS 3.4 mg/dL (2.7-4.5); POTASSIUM 4.1 mmol/L (3.5-5.1); SODIUM SERUM 153 mmol/L (136-145); UREA NITROGEN, BLOOD 26 mg/dL (8-21)
[2020-07-24 07:55] LABS: CHLORIDE 120 mmol/L (98-107)
--- NOTE | 2020-07-24 08:00 | NUR ---
ASSUMPTION OF CARE: RECEIVED PT AWAKE, CONFUSED, NO S/S OF DISTRESS, AFEBRILE, VSS, DX:FLUID VOLUME DEFICIT, R/T DEHYDRATION, IV SITE INTACT, PATENT, NO REDNESS OR SWELLING, CURRENTLY HAS BILATERAL SOFT WRIST RESTRAINTS, BREATH SOUNDS ARE CLEAR, BREATHING UNLABORED, SATURATING 94% WHILE ON 2L VIA NC, POSITIONED ON AIR MATTRESS, CALL LIGHT PLACED WITHIN REACH, SZ PRECAUTIONS IN PLACE, SIDE RAILS UP X3, ROOM CLOSE TO NURSES STATION, LANZA CATH IN TACT, DRAINING CLEAR, YELLOW URINE TO GRAVITY, WILL CONT' TO MONITOR AND ASSESS.
[2020-07-24 09:09] VITALS: BP_SYST 122
--- NOTE | 2020-07-24 09:30 | NUR ---
COACH PROFESSIONAL ATHLETES: MORNING MEDS GIVEN, PER ORDERED BY Shin, TOLERATED WELL, REPOSITIONED FOR COMFORT, CALL LIGHT PLACED WITHIN REACH, WILL CONT' TO MONITOR AND ASSESS.
[2020-07-24] MEDS: QUEtiapine FUMARATE 25 MG TABLET PO SCH ×3 (09:37→21:01)
[2020-07-24] MEDS: clonazePAM 0.5 MG TABLET PO PRN (09:37)
[2020-07-24] MEDS: PANTOPRAZOLE SODIUM 40 MG TAB PO SCH (09:38)
[2020-07-24] MEDS: APIXABAN 2.5 MG TABLET PO SCH ×2 (09:38→21:03)
[2020-07-24] MEDS: MULTIVITS,CA,MINERALS/IRON/FA 1 TABLET PO SCH (09:38)
[2020-07-24] MEDS: METOPROLOL SUCCINATE 25 MG TAB.SR.24H (TOPROL XL) PO SCH (09:50)
[2020-07-24] MEDS: VALPROIC ACID ORAL SYRUP 250 MG/5 ML UDC PO SCH ×2 (09:51→21:01)
[2020-07-24] MEDS: LamoTRIgine 25 MG TABLET PO SCH ×2 (09:53→21:00)
[2020-07-24] MEDS ORDERED: BALSAM PERU/CASTOR OIL 60 GM OINT...G. TP ONE (11:00)
[2020-07-24 12:00] VITALS: BP_SYST 116
--- NOTE | 2020-07-24 12:00 | NUR ---
NURSES NOTES: PT REMAINS STABLE, NO CHANGES IN CONDITION NOTED, IN AND OUT OF SLEEP, EASILY AROUSED, VIA LIGHT STIMULI, PT REMAINS IN RESTRAINTS, CONFUSED AT THIS TIME, CALL LIGHT PLACED WITHIN REACH, ROOM CLOSE TO NURSES STATION, WILL CONT' TO MONITOR AND ASSESS.
[2020-07-24] MEDS: KCL 20 mEq in D5/0.45NS 1000mL 1,000 ML IV SCH (12:27)
[2020-07-24 16:00] VITALS: BP_SYST 110
--- NOTE | 2020-07-24 16:00 | NUR ---
NURSES NOTES: PT RESTING IN POSITION OF COMFORT, NO SIGNIFICANT CHANGES NOTED AT THIS TIME, NO INDICATION OF PAIN OR DISCOMFORT, WILL CONT' TO MONITOR AND ASSESS.
--- NOTE | 2020-07-24 19:25 | NUR ---
Opening note Received patient resting on NICO mattress, w/eyees closed and easy to arouse, no distress and non labored breathing on room air. He has bilat wrist restraints, no sign of injury. IVF infusing via IV to LFA. Lopes catheter drainage bag to gravity. Seizure pads on top rails. Bed is locked in lowest position, all side rails up, bed alarm on and call light w/in reach. Updated board and reviewed plan of care.
[2020-07-24 20:00] VITALS: BP_SYST 113
[2020-07-24] MEDS: TAMSULOSIN HCL 0.4 MG CAP PO SCH (21:00)
[2020-07-24] MEDS: MIRTAZAPINE 15 MG TABLET PO SCH (21:00)
[2020-07-24] MEDS: FINASTERIDE 5 MG TABLET (PROSCAR) PO SCH (21:00)
--- NOTE | 2020-07-24 21:19 | NUR ---
meds Due meds given, crushed and mixed in applesauce. Patient was cooperative and swallowed.
--- NOTE | 2020-07-24 22:10 | NUR ---
rounds Patient was repositioned and turned. Release of restraint; patient was overall calm and immediately took hold of gown and removed blanket. He was not aggressive.
[2020-07-24] MEDS: cefTRIAXone 1 GM in D5W 50 ML IV SCH (23:58)
--- NOTE | 2020-07-25 00:05 | NUR ---
rounds, antibiotic Due antibiotic given, infusing well, tolerating. Repositioned and turned
[2020-07-25 00:10] VITALS: BP_SYST 124
[2020-07-25] MEDS: KCL 20 mEq in D5/0.45NS 1000mL 1,000 ML IV SCH ×2 (01:59→15:52)
--- NOTE | 2020-07-25 02:05 | NUR ---
IVF IVF fluids empty, hung new bag and changed primary tubing. Infusing well, no infiltration noted. Patient was repositioned turned and restraint released; no sign of injury.
--- NOTE | 2020-07-25 04:05 | NUR ---
rounds Patient was repositioned turned and restraint released; no sign of injury.
--- NOTE | 2020-07-25 06:00 | NUR ---
wound care Wound care done and pictures taken, will update MST assessment notes
[2020-07-25] MEDS: LEVOTHYROXINE SODIUM 0.15 MG TABLET PO SCH (06:29)
--- NOTE | 2020-07-25 06:30 | NUR ---
closing note Patient resting on NICO mattress, w/eyees closed, no distress and non labored breathing on room air. He has bilat wrist restraints, no sign of injury. IVF infusing via IV to LFA. Lopes catheter drainage bag to gravity. Seizure pads on top rails. Bed is locked in lowest position, all side rails up, bed alarm on and call light w/in reach. Needs met throughout shift, will endorse to day shift nurse.
--- NOTE | 2020-07-25 08:00 | NUR ---
ASSUMPTION OF CARE: RECEIVED PT AWAKE, CONFUSED, NO S/S OF DISTRESS, AFEBRILE, VSS, DX:FLUID VOLUME DEFICIT, R/T DEHYDRATION, IV SITE INTACT, PATENT, NO REDNESS OR SWELLING, CURRENTLY HAS BILATERAL SOFT WRIST RESTRAINTS, BREATH SOUNDS ARE CLEAR, BREATHING UNLABORED, SATURATING 92% WHILE ON 2L VIA NC, POSITIONED ON AIR MATTRESS, CALL LIGHT PLACED WITHIN REACH, SZ PRECAUTIONS IN PLACE, SIDE RAILS UP X3, ROOM CLOSE TO NURSES STATION, LANZA CATH IN TACT, DRAINING CLEAR, YELLOW URINE TO GRAVITY, WILL CONT' TO MONITOR AND ASSESS.
[2020-07-25] MEDS: QUEtiapine FUMARATE 25 MG TABLET PO SCH ×3 (09:14→21:35)
[2020-07-25] MEDS: PANTOPRAZOLE SODIUM 40 MG TAB PO SCH (09:15)
[2020-07-25] MEDS: VALPROIC ACID ORAL SYRUP 250 MG/5 ML UDC PO SCH ×2 (09:15→21:35)
[2020-07-25] MEDS: MULTIVITS,CA,MINERALS/IRON/FA 1 TABLET PO SCH (09:15)
[2020-07-25] MEDS: METOPROLOL SUCCINATE 25 MG TAB.SR.24H (TOPROL XL) PO SCH (09:23)
[2020-07-25] MEDS: APIXABAN 2.5 MG TABLET PO SCH ×2 (09:24→21:36)
[2020-07-25] MEDS: BALSAM PERU/CASTOR OIL 60 GM OINT...G. TP SCH (09:25)
[2020-07-25] MEDS: LamoTRIgine 25 MG TABLET PO SCH ×2 (09:25→21:34)
--- NOTE | 2020-07-25 09:45 | NUR ---
PLATE GRINDER: MORNING MEDS GIVEN, PER ORDERED BY Shin, TOLERATED WELL, REPOSITIONED FOR COMFORT, CALL LIGHT PLACED WITHIN REACH, WILL CONT' TO MONITOR AND ASSESS.
[2020-07-25 12:00] VITALS: BP_SYST 117
--- NOTE | 2020-07-25 12:00 | NUR ---
NURSES NOTES: PT REMAINS STABLE, NO CHANGES IN CONDITION NOTED, IN AND OUT OF SLEEP, EASILY AROUSED, CALL LIGHT PLACED WITHIN REACH, ROOM CLOSE TO NURSES STATION, WILL CONT' TO MONITOR AND ASSESS.
[2020-07-25 16:00] VITALS: BP_SYST 127
--- NOTE | 2020-07-25 16:00 | NUR ---
NURSES NOTES: PT ASLEEP, AROUSED VIA LIGHT TACTILE STIMULI, REPOSITIONED FOR COMFORT, TOLERATED WELL, REORIENTED TO CALL LIGHT, PLACED WITHIN REACH, WILL CONT' TO MONITOR AND ASSESS.
--- NOTE | 2020-07-25 19:20 | NUR ---
Opening note Received patient resting on NICO mattress, w/eyes closed and easy to arouse, no distress and non labored breathing on 1L NC. He has bilat wrist restraints, no sign of injury. IVF infusing via IV to LFA. Lopes catheter drainage bag to gravity. Seizure pads on top rails. Bed is locked in lowest position, all side rails up, bed alarm on and call light w/in reach. Updated board.
[2020-07-25 20:11] VITALS: BP_SYST 137
[2020-07-25] MEDS: FINASTERIDE 5 MG TABLET (PROSCAR) PO SCH (21:34)
[2020-07-25] MEDS: MIRTAZAPINE 15 MG TABLET PO SCH (21:35)
[2020-07-25] MEDS: TAMSULOSIN HCL 0.4 MG CAP PO SCH (21:35)
--- NOTE | 2020-07-25 21:37 | NUR ---
meds Due meds given, crushed and mixed in applesauce. Patient was cooperative and swallowed.
--- NOTE | 2020-07-25 22:01 | NUR ---
Dr. Sagastume rounds Dr. Sagastume at bedside to see patient.
[2020-07-26] MEDS: cefTRIAXone 1 GM in D5W 50 ML IV SCH (00:11)
--- NOTE | 2020-07-26 00:16 | NUR ---
antibiotic Due antibiotic given, infusing well, tolerating. Repositioned and turned
--- NOTE | 2020-07-26 00:42 | NUR ---
Consultation Paged Reason for Consultation: Needs GT Was consult called: Y Person who was notified: Usha Consulting Physician: Dr. Varghese (Dr. Love is transportation equipment painter) Ordering Physician: Dr. Sagastume
[2020-07-26 01:05] VITALS: BP_SYST 143
--- NOTE | 2020-07-26 02:27 | NUR ---
rounds, resting Patient resting in comfortable position. No distress, symmetrical rise and fall of chest, IVF infusing well. Safety, aspiration, seizure precautions maintained.
--- NOTE | 2020-07-26 07:30 | NUR ---
Opening note patient resting in bed, a/ox1, reoriented to place, time and event, no signs of distress, assessment complete, patient is in restraints, no signs of injury or skin breakdown, Lopes Catheter in place draining to gravity, on 1L via nasal cannula, tolerating well, continuing to monitor, bed in lowest position, three side rails up, bed alarm on, bed close to nursing station, fall, aspiration and seizure precautions in place.
[2020-07-26 08:00] VITALS: BP_SYST 138
[2020-07-26] MEDS: QUEtiapine FUMARATE 25 MG TABLET PO SCH ×3 (08:45→20:02)
[2020-07-26] MEDS: PANTOPRAZOLE SODIUM 40 MG TAB PO SCH (08:45)
[2020-07-26] MEDS: VALPROIC ACID ORAL SYRUP 250 MG/5 ML UDC PO SCH ×2 (08:45→20:02)
[2020-07-26] MEDS: LamoTRIgine 25 MG TABLET PO SCH ×2 (08:45→20:02)
[2020-07-26] MEDS: METOPROLOL SUCCINATE 25 MG TAB.SR.24H (TOPROL XL) PO SCH (08:45)
[2020-07-26] MEDS: MULTIVITS,CA,MINERALS/IRON/FA 1 TABLET PO SCH (08:45)
--- NOTE | 2020-07-26 08:45 | NUR ---
Medications patient resting in bed, crushed medications in applesauce, administered per MD orders, held Eliquis per Dr. Varghese, patient tolerated well and tried to resist taking medications, explained to patient the benefits of medication, then he took them, continuing to monitor, bed in lowest position, three side rails up, bed alarm on, bed close to nursing station, fall, seizure and aspiration precautions in place, continuing on restraints, no signs of injury or skin breakdown.
[2020-07-26] MEDS: KCL 20 mEq in D5/0.45NS 1000mL 1,000 ML IV SCH ×2 (11:14→17:16)
[2020-07-26] MEDS: LEVOTHYROXINE SODIUM 0.15 MG TABLET PO SCH (11:14)
[2020-07-26 12:00] VITALS: BP_SYST 117
--- NOTE | 2020-07-26 12:40 | NUR ---
Nutrition F/U RD reviewed pt's current EMR record including diet Hx, physician notes, nursing notes, pertinent labs/meds/procedures, care trends, and care activity. Admission Dx: Dehydration PMH: Pt presents w/: Severe Dehydration, Lactic acidosis, Metabolic encephalopathy, Chronic dementia, Paranoid schizophrenia, CKD, Atrial fibrillation, BPH, Seizure disorder, GERD, Hypothyroidism, Anemia, bilateral Heel Unstageable ulcer per MD notes. SARS-CoV-2 Ag Rapid 07/20 Negative COVID-19 PCR 07/21 Negative 07/23 ST swallow eval: pt is at very high risk for malnutrition and dehydration; unable to fully r/o risk for aspiration; ST rec for alternative method for nutrition/hydration per EMR Current Diet Order/Nutrition Support: Mechanical soft x5 days Subjective Info: Pt seen resting in bed, did not respond to RD verbal interview questions. Bedscale wt taken: 146#. RN reported that pt may go in for PEG this weekend, as pt barely eats much of his meals. BM within past 24 hours per RN report. Pt is an appropriate candidate for EN support via GT. Pertinent Medications: Theragran-M, Sythroid, Remeron, Eliquis, Seroquel, Miralax Pertinent Labs: Na 153 H, BG 102 H, BUN 26 H, CRE 1.18 WNL Skin Integrity Comment: Leo scale: 12; no PIs noted per EMR; RN reported bilateral generalized non-pitting edema Current % PO Negligible <25% x6 meals Estimated Energy Expenditure (kcals/day) 9768-0490 Kcal/day (25-30 kcal/kg IBW for maintenance) Estimated Protein Required (g/day) 67gm/day (1gm/kg IBW for Renal Dz predialysis) Estimated Fluid Required (l/day) per MD (CKD) Problem/Etiology/Signs/Symptoms Altered nutrition related labs r/t renal dysfunction AEB elevated Na+ and BUN lab values, Hx of CKD. *ongoing, seemingly improving Predicted suboptimal nutrient intake r/t poor appetite 2/2 cognitive limitations AEB negligible PO intake <10% of meals and altered mental status. *ongoing Expected Outcomes/Goals Monitor appetite and PO intake/initiation of nutrition support w/ goal of pt meeting more than 75% of estimated nutritional needs, labs trending WNL, normal GI function, skin integrity/wt maintenance. Dietitian Recommendations * Once PEG is in place, consider Jevity 1.2 at 60 ml/hr (goal rate) via GT Provides: 1728 kcal/day, 80 gm protein/day, and 1162 ml free water/day Meets: 103% of lower end of estimated caloric needs and 100% of upper end of estimated protein needs * Consider ST swallow re-eval Follow Up High Risk: F/U in 2-3 days Addendum: 07/26/20 at [address] CORRECTION: Estimated Protein Required (g/day) 67-80 gm/day (1-1.2 gm/kg IBW for Renal Dz predialysis, geriatric status)
--- NOTE | 2020-07-26 12:45 | NUR ---
RN rounds patient resting in bed, eyes closed, breathing is even and unlabored, no signs of distress, calm at this time, restraints in place, continuing to monitor, bed in lowest position, three side rails up, bed alarm on, bed close to nursing station, fall, aspiration and seizure precautions in place.
--- NOTE | 2020-07-26 12:50 | NUR ---
Dietitian Recommendations * Once PEG is in place, consider Jevity 1.2 at 60 ml/hr (goal rate) via GT Provides: 1728 kcal/day, 80 gm protein/day, and 1162 ml free water/day Meets: 103% of lower end of estimated caloric needs and 100% of upper end of estimated protein needs * Consider ST swallow re-eval LP, RD Please refer to Nutrition F/U for details.
--- NOTE | 2020-07-26 14:28 | NUR ---
RN rounds patient resting in bed, eyes closed, breathing is even and unlabored, no signs of distress, patient is too drowsy to take medications at this time, continuing to monitor, restraints in place, bed in lowest position, three side rails up, bed alarm on, bed close to nursing station, fall, aspiration and seizure precautions in place.
--- NOTE | 2020-07-26 16:05 | NUR ---
RN rounds patient resting in bed, eyes closed, breathing is even and unlabored, cleaned, turned and repositioned patient with LINE ASSEMBLY UTILITY WORKER, patient was cooperative at this time, restraints continuing, no signs of injury or skin breakdown, continuing to monitor, bed in lowest position, three side rails up, bed alarm on, bed close to nursing station, fall, seizure and aspiration precautions in place.
--- NOTE | 2020-07-26 17:05 | NUR ---
Spoke with patient's family had a conversation with patient's daughter, Erika, updates were given, informed her that her father is still not eating well and refusing to eat at times, informed her that Dr. Varghese will speak with her and the family regarding placement of a G Tube for feeding. Erika has concerns that the patient will end up pulling the G Tube out. Erika suggested warm/hot foods for the patient, requesting if she can bring in food from home (will clarify this with Literacy Coach regarding food from home policies at this time). Erika will await call from Dr. Varghese to explain risk/benefit of G Tube.
[2020-07-26] MEDS: BALSAM PERU/CASTOR OIL 60 GM OINT...G. TP SCH (17:15)
--- NOTE | 2020-07-26 17:20 | NUR ---
RN rounds patient resting in bed, awake, calm at this time, no signs of pain or distress, restraints in place, no signs of injury or breakdown, IVF hung and infusing well, IV line is patent, no s/s of infiltration, continuing to monitor, bed in lowest position, three side rails up, bed alarm on, bed close to nursing station, fall, aspiration and seizure precautions in place.
[2020-07-26 17:38] VITALS: BP_SYST 128
--- NOTE | 2020-07-26 18:36 | NUR ---
Closing note patient resting in bed, eyes closed, breathing is even and unlabored, no signs of distress, patient is too drowsy to eat dinner at this time, IV line is patent and infusing well, Lopes Catheter in place draining to gravity, all needs met, will endorse report to NOC shift nurse, bed in lowest position, three side rails up, bed alarm on, bed close to nursing station, fall, aspiration and seizure precautions in place.
--- NOTE | 2020-07-26 19:44 | NUR ---
RN ROUNDS Received patient lying in bed, sleeping, breathing is even and unlabored, vital signs stable. SR on the heart monitor. IV Line to left ac intact and patent IVF infusing well. Bilateral wrist restraints in place, alfonso catheter secured and to gravity draining yellow urine. Fall and safety measures in place.
[2020-07-26] MEDS: MIRTAZAPINE 15 MG TABLET PO SCH (20:02)
[2020-07-26] MEDS: FINASTERIDE 5 MG TABLET (PROSCAR) PO SCH (20:02)
[2020-07-26] MEDS: TAMSULOSIN HCL 0.4 MG CAP PO SCH (20:02)
[2020-07-26 20:08] VITALS: BP_SYST 122
--- NOTE | 2020-07-26 21:48 | NUR ---
MED PASS Patients due medications administered, crushed and given with applesauce, tolerated well, aspiration precautions maintained, repositioned and turned with pillow support. Bilateral wrist restraints in place.
--- NOTE | 2020-07-26 22:00 | NUR ---
MD Dr. Sagastume made rounds, no new orders at this time.
--- NOTE | 2020-07-26 22:30 | NUR ---
RN ROUNDS Patient sleeping, respirations even and unlabored, on room air, turned and repositioned with pillow support, bilateral wrist restraints in place, Safety and seizure precautions in place.
--- NOTE | 2020-07-26 23:15 | NUR ---
WOUND CARE Wound care done to left and right heel, cleansed with NS, pat dry, covered with foam dressing, elevated both heels with heel lift boots. Patient tolerated well.
[2020-07-27 00:11] VITALS: BP_SYST 138
--- NOTE | 2020-07-27 00:14 | NUR ---
RN ROUNDS/HYGIENE Patient had a bowel movement, hygiene care provided, turned and repositioned with pillow support, bilateral heel lift boots in place. Due antibiotics administered, safety and seizure precautions in place.
[2020-07-27] MEDS: cefTRIAXone 1 GM in D5W 50 ML IV SCH (00:26)
--- NOTE | 2020-07-27 02:30 | NUR ---
RN ROUNDS Patient asleep, respirations even and unlabored, turned and repositioned with pillow support, bilateral wrist restraints in place, Safety and seizure precautions in place.
--- NOTE | 2020-07-27 04:20 | NUR ---
RN ROUNDS Patient sleeping, respirations even and unlabored, remains on room air, turned and repositioned with pillow support, bilateral wrist restraints in place, Safety and seizure precautions in place.
[2020-07-27] MEDS: KCL 20 mEq in D5/0.45NS 1000mL 1,000 ML IV SCH ×2 (05:02→21:07)
--- NOTE | 2020-07-27 05:17 | NUR ---
MD Dr. Morgan at patients bedside, updated him on patients status, medications adjusted.
[2020-07-27 06:18] LABS: BASOPHILS # (AUTO) 0.1 K/uL (0.0-0.2); BASOPHILS % (AUTO) 0.4 % (0.0-2.0); EOSINOPHILS # (AUTO) 0.4 K/uL (0.0-0.4); EOSINOPHILS % (AUTO) 3.7 % (0.0-4.0); HEMOGLOBIN 11.6 g/dL (14.0-18.0); LYMPHOCYTES # (AUTO) 1.1 K/uL (1.0-5.5); LYMPHOCYTES % (AUTO) 9.1 % (20.5-51.5); MEAN CORPUSCULAR HEMOGLOBIN 31 pg (27-31); MEAN CORPUSCULAR HGB CONC 32 % (32-36); MEAN CORPUSCULAR VOLUME 96 fL (79.0-98.0); MONOCYTES # (AUTO) 0.6 K/uL (0.0-1.0); MONOCYTES % (AUTO) 5.5 % (1.7-9.3); NEUTROPHILS # (AUTO) 9.5 K/uL (1.8-7.7); NEUTROPHILS % (AUTO) 81.3 % (40.0-70.0); PLATELET COUNT (AUTO) 270 K/uL (130-430); RED BLOOD CELL COUNT(AUTO) 3.76 MIL/uL (4.2-6.2); RED CELL DISTRIBUTION WIDTH 14.6 % (9.0-15.0); WHITE BLOOD COUNT (AUTO) 11.7 K/uL (4.8-10.8)
[2020-07-27] MEDS: LEVOTHYROXINE SODIUM 0.15 MG TABLET PO SCH (06:23)
--- NOTE | 2020-07-27 06:24 | NUR ---
RN ROUNDS Patient sleeping, respirations even and unlabored, remains on room air, IV line intact and patent and IVF continues to infuse, turned and repositioned with pillow support, bilateral wrist restraints in place, Safety and seizure precautions maintained throughout the shift, no se
[2020-07-27 07:00] LABS: ANION GAP 11 (5-15); CALCIUM 7.9 mg/dL (8.4-11.0); CHLORIDE 116 mmol/L (98-107); CREATININE 1.06 mg/dL (0.55-1.30); GLUCOSE 93 mg/dL (70-99); POTASSIUM 4.1 mmol/L (3.5-5.1); SODIUM SERUM 148 mmol/L (136-145); UREA NITROGEN, BLOOD 13 mg/dL (8-21)
[2020-07-27 07:06] LABS: INR 1.1 (0.80-1.20); PROTHROMBIN TIME 11.2 SECS (9.5-12.5)
[2020-07-27 07:30] LABS: VALPROIC ACID 30 ug/mL (50-100)
--- NOTE | 2020-07-27 07:30 | NUR ---
RECEIVED REPORT FROM GOSPEL SINGER RN. PT LAYING IN BED AWAKE, CALM, RESP REG NON-LABORED, NAD NOTED.
[2020-07-27 08:15] VITALS: BP_SYST 120; BP_SYST 127
[2020-07-27] MEDS: QUEtiapine FUMARATE 25 MG TABLET PO SCH ×2 (08:30→21:07)
[2020-07-27] MEDS: MULTIVITS,CA,MINERALS/IRON/FA 1 TABLET PO SCH (08:30)
[2020-07-27] MEDS: PANTOPRAZOLE SODIUM 40 MG TAB PO SCH (08:30)
[2020-07-27] MEDS: VALPROIC ACID ORAL SYRUP 250 MG/5 ML UDC PO SCH ×2 (08:31→21:07)
[2020-07-27] MEDS: METOPROLOL SUCCINATE 25 MG TAB.SR.24H (TOPROL XL) PO SCH (08:37)
[2020-07-27] MEDS: BALSAM PERU/CASTOR OIL 60 GM OINT...G. TP SCH (08:38)
--- NOTE | 2020-07-27 09:00 | NUR ---
MED PASS DONE, FED BREAKFAST BY ACCOUNTANT AUDITOR, TOLERATED BOTH WELL. CALM AND COOPERATIVE AT PRESENT. SAFETY WRIST DEVICE LOOSE DURING BREAKFAST
--- NOTE | 2020-07-27 11:15 | NUR ---
ON ROUNDS PATIENT ASLEEP NAD, RESP REG NON-LABORED.
[2020-07-27 13:35] VITALS: BP_SYST 113
[2020-07-27] MEDS ORDERED: DIPHENHYDRAMINE HCL 12.5 MG/5 ML UDC PO PRN (14:30)
[2020-07-27 17:32] VITALS: BP_SYST 121
--- NOTE | 2020-07-27 17:45 | NUR ---
PT ROOM CHANGE, TO A STANDARD ROOM, TRANSFERRED TO ROOM 102 A, FOR SAFETY AND PER PROTOCOL.
--- NOTE | 2020-07-27 18:28 | NUR ---
ON ROUNDS PT ASLEEP, CALM, PM CARE DONE. TOLERATED WELL, NO APPARENT DISTRESS NOTED.
[2020-07-27 19:00] VITALS: BP_SYST 141
--- NOTE | 2020-07-27 19:05 | NUR ---
REPORT TO THE CARTON REPAIRER RN.
--- NOTE | 2020-07-27 19:15 | NUR ---
change of shift.pt.presents quiescent affect;somnolent.pt.presents restraints;wrist;bilateral in place.pt.presents iv access iv fluids infusing.pt.presents alfonso cath intact;patent urine content present.general status stable.respiratory status stable;unlabored@room air.call light/telephone placed w/in access of the pt.pt.to submit to an egd/peg placement:07/28/20.to f/u re;consent procedure paper work.
[2020-07-27 20:00] VITALS: BP_SYST 141
--- NOTE | 2020-07-27 20:00 | NUR ---
pt.assessed.pt.presents quiescent affect;somnolent.restraints;wrist;bilateral assessed in place.restraints in place.skin/circulation wnl.iv access intact;patent iv fluids infusing. pt.assessed for cleanliness.pt.repositioned.alfonso cath intact;patent urine content present.general status stable.respiratory status stable. call light/telephone placed w/in access of the pt.per flacc pain mgx pt.absent facial grimaces/body posturing.
[2020-07-27] MEDS: DIPHENHYDRAMINE HCL/ZINC ACET 28.3 GM CREAM.GM. TP SCH (21:00)
--- NOTE | 2020-07-27 21:00 | NUR ---
2100pmedications;pt.stated;namibian pain present lower extremities bilateral. paged r/e:pt'a requests pain medication. i have changed the iv fluids bag.iv access intact;pattern.
[2020-07-27] MEDS: FINASTERIDE 5 MG TABLET (PROSCAR) PO SCH (21:07)
[2020-07-27] MEDS: TAMSULOSIN HCL 0.4 MG CAP PO SCH (21:07)
[2020-07-27] MEDS: MIRTAZAPINE 15 MG TABLET PO SCH (21:07)
[2020-07-27] MEDS ORDERED: ACETAMINOPHEN 325 MG TABLET PO PRN (21:30)
--- NOTE | 2020-07-27 21:30 | NUR ---
2100pmedications administered.i have administered tylenol:650 mg po;to assesse the efficacy of the pain medication per pain mgx protocol. Addendum: 07/27/20 at 2351 by Dawson Mosquera RN returned the page.i apprised of the pt's requests pain medication. ordered tylenol:650mg po q-6hrs;pain.
--- NOTE | 2020-07-27 22:00 | NUR ---
pt.assessed.pt.presents quiescent affect;somnolent.restraints in place;skin/circulation assessed wnl.iv access intact;patent iv fluids infusing. pt.assessed for cleanliness.pt.repositioned.alfonso cath intact;patent urine content present.general status stable.respiratory status table;unlabored.call light/telephone placed w/in access of the pt.
--- NOTE | 2020-07-28 | NUR ---
pt.assessed.v/s assessed values w/in normal limits.no c/o pain,nausea;thai.pt.assessed for cleanliness.pt.repositioned. iv access intact;patent iv fluids infusing.alfonso cath intact;patent urine content present.general status stable.respiratory status stable;unlabored.o2-sat%=96%.general status stable.call light/telephone placed w/in access of the pt.restraints; wrist;bilateral in place.skin/circulation assessed wnl.
[2020-07-28] MEDS: cefTRIAXone 1 GM in D5W 50 ML IV SCH (00:05)
[2020-07-28 00:58] VITALS: BP_SYST 140
--- NOTE | 2020-07-28 02:00 | NUR ---
pt.assessed.restraints assessed in place.skin/circulation assessed w/in normal limits.iv access intact;patent iv fluids infusing. alfonso cath intact;patent urine content present.pt.assessed for cleanliness.pt.repositioned.per flacc pain mgx pt.absent facial grimaces/body posturing.general status stable.respiratory status stable;unlabored.call light/telephone placed w/in access of the pt.
--- NOTE | 2020-07-28 04:00 | NUR ---
pt.assessed.pt.presents quiescent affect;somnolent.pt.assessed for cleanliness.pt.repositioned.iv access intact;patent iv fluids infusing.alfonso cath intact;patent urine content present.per flacc pain mgx;pt.absent facial grimaces.body posturing. general status stable.respiratory status stable;unlabored.call light/telephone placed w/in access of the pt.restraints;wrist; bilateral assessed in place.skin/circulation wnl.
--- NOTE | 2020-07-28 06:18 | NUR ---
pt.assessed.pt.assessed for cleanliness.pt.cleaned/repositioned\.no c/o pain,nausea.restraints;wrist,bilateral in place. skin/circulation assessed wnl. general status stable.respiratory status stable;unlabored.call light/telephone placed w/in access of the pt.
[2020-07-28] MEDS: LEVOTHYROXINE SODIUM 0.15 MG TABLET PO SCH (06:30)
--- NOTE | 2020-07-28 06:54 | NUR ---
ELIZABETH LARRY CALLED CALLED PRIYA ZHU AT [phone] SPOKE WITH EYAD.
[2020-07-28 08:00] VITALS: BP_SYST 124
--- NOTE | 2020-07-28 08:00 | NUR ---
Note Pt was assisted in sitting position to eat his breakfast at this time with assist. No SOB/resp distress or pain/discomfort was noted. Tele unit attached and intact. IV in right forearm intact and patent infusing IVF's well. Pt near nurses' station for close observation for needs and care.
--- NOTE | 2020-07-28 08:05 | NUR ---
Note Dr Vieira on the floor to assess pt. EGD with PEG placement possibly to be done on Thursday07/30/20.
[2020-07-28] MEDS: QUEtiapine FUMARATE 25 MG TABLET PO SCH ×2 (08:32→20:50)
[2020-07-28] MEDS: MULTIVITS,CA,MINERALS/IRON/FA 1 TABLET PO SCH (08:32)
[2020-07-28] MEDS: METOPROLOL SUCCINATE 25 MG TAB.SR.24H (TOPROL XL) PO SCH (08:33)
[2020-07-28] MEDS: PANTOPRAZOLE SODIUM 40 MG TAB PO SCH (08:33)
[2020-07-28] MEDS: VALPROIC ACID ORAL SYRUP 250 MG/5 ML UDC PO SCH ×2 (08:34→20:50)
[2020-07-28] MEDS: BALSAM PERU/CASTOR OIL 60 GM OINT...G. TP SCH (10:05)
[2020-07-28] MEDS: DIPHENHYDRAMINE HCL/ZINC ACET 28.3 GM CREAM.GM. TP SCH ×3 (10:05→20:51)
--- NOTE | 2020-07-28 10:25 | NUR ---
Note Pt asleep at this time. No needs noted. Call light within reach.
[2020-07-28 11:26] VITALS: BP_SYST 144
[2020-07-28] MEDS: KCL 20 mEq in D5/0.45NS 1000mL 1,000 ML IV SCH ×2 (12:57→22:20)
--- NOTE | 2020-07-28 13:10 | NUR ---
Note Pt checked on for needs and care. No needs noted at this time. Call light within reach. Restraints on all shift.
[2020-07-28 15:37] VITALS: BP_SYST 127
--- NOTE | 2020-07-28 17:14 | NUR ---
Nutrition F/U RD reviewed pt's current EMR record including diet Hx, physician notes, nursing notes, pertinent labs/meds/procedures, care trends, and care activity. Admission Dx: Dehydration PMH: Pt presents w/: Severe Dehydration, Lactic acidosis, Metabolic encephalopathy, Chronic dementia, Paranoid schizophrenia, CKD, Atrial fibrillation, BPH, Seizure disorder, GERD, Hypothyroidism, Anemia, bilateral Heel Unstageable ulcer per MD notes. SARS-CoV-2 Ag Rapid 07/20 Negative COVID-19 PCR 07/21 Negative 07/23 ST swallow eval: pt is at very high risk for malnutrition and dehydration; unable to fully r/o risk for aspiration; ST rec for alternative method for nutrition/hydration per EMR Current Diet Order/Nutrition Support: Mechanical soft x5 days Subjective Info: Per EMR review, possible plans for PEG placement 07/30; pt continues w/ negligible PO intake records. Pt is an appropriate candidate for EN support via GT. Pertinent Lab/Medications: Reviewed Skin Integrity Comment: Leo scale: 12; no PIs noted per EMR; RN reported bilateral generalized non-pitting edema Current % PO Negligible <25% x6 meals Estimated Energy Expenditure (kcals/day) 0727-5576 Kcal/day (25-30 kcal/kg IBW for maintenance) Estimated Protein Required (g/day) 67-80 gm/day (1-1.2 gm/kg IBW for Renal Dz predialysis, geriatric status) Estimated Fluid Required (l/day) per MD (CKD) Problem/Etiology/Signs/Symptoms Altered nutrition related labs r/t renal dysfunction AEB elevated Na+ and BUN lab values, Hx of CKD. *ongoing, seemingly improving Predicted suboptimal nutrient intake r/t poor appetite 2/2 cognitive limitations AEB negligible PO intake <10% of meals and altered mental status. *ongoing Expected Outcomes/Goals Monitor appetite and PO intake/initiation of nutrition support w/ goal of pt meeting more than 75% of estimated nutritional needs, labs trending WNL, normal GI function, skin integrity/wt maintenance. Dietitian Recommendations * Once PEG is in place, consider Jevity 1.2 at 60 ml/hr (goal rate) via GT Provides: 1728 kcal/day, 80 gm protein/day, and 1162 ml free water/day Meets: 103% of lower end of estimated caloric needs and 100% of upper end of estimated protein needs * Consider NPO and ST swallow re-eval Follow Up High Risk: F/U in 2-3 days
--- NOTE | 2020-07-28 17:15 | NUR ---
Dietitian Recommendations * Once PEG is in place, consider Jevity 1.2 at 60 ml/hr (goal rate) via GT Provides: 1728 kcal/day, 80 gm protein/day, and 1162 ml free water/day Meets: 103% of lower end of estimated caloric needs and 100% of upper end of estimated protein needs * Consider NPO and ST swallow re-eval LP, RD Please refer to Nutrition F/U for details.
--- NOTE | 2020-07-28 18:10 | NUR ---
Note Pt was turned from side to side for hygiene care, pt started swinging and being aggressive. Pt has bilateral wrist restraints. Pt denies any SOB/resp distress or pain/discomfort noted at this time. Pt was checked on q1' and PRN all shift for needs and care. Pt was maintained with safety precautions all shift. IV in right forearm intact and patent infusing IVF's well. Bed in low position and bed alarm on all shift. Tele unit attached and intact. Pt's appetite poor all shift. Pt has had seizure pads on bed all shift for seizure precautions. Call light within reach.
--- NOTE | 2020-07-28 19:30 | NUR ---
Opening notes Received report. Patient is resting in bed, no signs of distress noted. Breathing even and unlabored on room air. IV patent and intact, infusing fluids. Lopes catheter in place, draining urine. Bilateral wrist restraints in place, no signs of injury noted. Call light with the patient. Safety precautions in place.
[2020-07-28 20:00] VITALS: BP_SYST 141
[2020-07-28] MEDS: TAMSULOSIN HCL 0.4 MG CAP PO SCH (20:50)
[2020-07-28] MEDS: MIRTAZAPINE 15 MG TABLET PO SCH (20:50)
--- NOTE | 2020-07-28 20:50 | NUR ---
Medications scheduled medications given, crushed with apple sauce. Educated the action and side effects of Flomax. Patient was refusing at first. But then took medications after a couple times of talking to patient. No other needs. Call light with the patient. Safety precautions in place.
[2020-07-28] MEDS: FINASTERIDE 5 MG TABLET (PROSCAR) PO SCH (21:03)
--- NOTE | 2020-07-28 22:30 | NUR ---
Hygiene care provided. Patient is combative when restraints are removed and will try to scratch nurse/self. Restraints reapplied. No signs of injury noted. No other needs. Call light with the patient. Safety precautions in place.
[2020-07-29] VITALS: BP_SYST 138
--- NOTE | 2020-07-29 00:30 | NUR ---
RN rounds Patient is resting in bed, in and out of sleep. No signs of distress noted. Breathing even and unlabored, on room air. IVF infusing well. Bilateral wrist restraints in place, no signs of injury noted.
--- NOTE | 2020-07-29 02:30 | NUR ---
RN rounds Patient is resting in bed, in and out of sleep. No signs of distress noted. Breathing even and unlabored, on room air. IVF infusing well. Bilateral wrist restraints in place, no signs of injury noted. Call light with the patient. Safety precautions in place.
--- NOTE | 2020-07-29 04:30 | NUR ---
Hygiene care Patient had BM. Hygiene care provided. Patient tolerated well. No signs of distress noted. Breathing even and unlabored. IVF infusing well. Bilateral wrist restraints in place, no signs of injury noted. Call light with the patient. Safety precautions in place.
[2020-07-29] MEDS: LEVOTHYROXINE SODIUM 0.15 MG TABLET PO SCH (06:41)
--- NOTE | 2020-07-29 07:03 | NUR ---
Closing notes Patient is resting in bed, no signs of distress noted. Breathing even and unlabored on room air. IV was infiltrated. ADR is attempting to insert IV. Will inform next shift. Lopes catheter in place. Bilateral wrist restraints in place, no signs of injury noted. Patient took AM medications with ease. All needs met throughout the shift. Call light with the patient. Safety precautions in place. will endorse care to day shift RN.
--- NOTE | 2020-07-29 08:15 | NUR ---
INITIAL ROUNDS Received pt awake, confused and restless. Pt pulling on soft wrist restraints and removing telemetry leads. ash kier boiler attempting to place a new IV at this time. Pt with no s/s resp distress, noted itchiness to chest area, no c/o pain. Seizure precautions in place.
[2020-07-29 09:06] VITALS: BP_SYST 137
[2020-07-29] MEDS: DIPHENHYDRAMINE HCL/ZINC ACET 28.3 GM CREAM.GM. TP SCH ×3 (10:15→21:06)
--- NOTE | 2020-07-29 10:15 | NUR ---
ROUNDS Pt pulling at his restraints and removing his telemetry leads, pt given bed bath and Benadryl cream applied to red, raised rash area over pt's chest and upper arms. Pt repositioned in bed with pillow support and Heelift boots in place. New telemetry dots placed on patient. Bilat wrist restraints repositioned and replaced. AM medications given. No s/s seizure activity noted. All precautions remain in place.
[2020-07-29] MEDS: MULTIVITS,CA,MINERALS/IRON/FA 1 TABLET PO SCH (10:16)
[2020-07-29] MEDS: QUEtiapine FUMARATE 25 MG TABLET PO SCH ×2 (10:16→21:05)
[2020-07-29] MEDS: VALPROIC ACID ORAL SYRUP 250 MG/5 ML UDC PO SCH ×2 (10:16→21:05)
[2020-07-29] MEDS: PANTOPRAZOLE SODIUM 40 MG TAB PO SCH (10:17)
[2020-07-29] MEDS: METOPROLOL SUCCINATE 25 MG TAB.SR.24H (TOPROL XL) PO SCH (10:17)
[2020-07-29 11:25] VITALS: BP_SYST 149
[2020-07-29] MEDS: clonazePAM 0.5 MG TABLET PO PRN (15:23)
[2020-07-29 15:24] VITALS: BP_SYST 126
--- NOTE | 2020-07-29 15:25 | NUR ---
ROUNDS/AGITATION Pt throwing his legs over the side rails, pt very restless, pulling on wrist restraints to loosen them and pulling at telemetry box leads. Pt given Klonopin as ordered. Pt had large semi-formed bowel movement, pt got stool all over his gown and the bed-pt cleaned up. Pt repositioned with pillow support and heels off-loaded. Aspiration, skin, safety and seizure precautions remain in place.
[2020-07-29] MEDS: BALSAM PERU/CASTOR OIL 60 GM OINT...G. TP SCH (17:15)
--- NOTE | 2020-07-29 17:16 | NUR ---
WOUND CARE *Left posterior heel cleansed with normal saline, Venelex applied to wound bed, moisture barrier cream applied to periwound, covered with foam dressing and secured in place with Oscar wrap. Wound measures 1.4 cm x 2.3 cm, wound bed is 95% black tissue and 5% yellow tissue, no odor, no drainage. Right lateral posterior heel cleansed with normal saline, Venelex applied to wound bed, moisture barrier cream applied to periwound, covered with foam dressing. Bilat heels off-loaded for skin care. Pt tolerated well.
--- NOTE | 2020-07-29 18:30 | NUR ---
CLOSING NOTE Pt remains restless, pulls at telemetry leads, kicking his feet. No s/s resp distress, no c/o pain or discomfort, no s/s pain or discomfort. Dr. Sagastume here and saw the pt-MD stated to make sure pt's Midline placed tonight and to restart pt's fluids-will endorse to shift mgr nurse. All precautions remain in place.
--- NOTE | 2020-07-29 19:15 | NUR ---
OPENING NOTE Patient is resting, eyes closed, was endorsed that patient remains restless, pulls at telemetry leads, kicks his feet. Anticipating a Midline placement tonight. No respiratory distress or pain noted, no IV site noted. Lopes catheter draining by gravity, no kinks, no loops noted, bag not touching the floor, heels elevated with a pillow, seizure pads in place. Call light within reach, bed alarm on, bed at lowest position. Will continue to monitor. Patient to be NPO past midnight.
[2020-07-29 20:00] VITALS: BP_SYST 128
[2020-07-29] MEDS: MIRTAZAPINE 15 MG TABLET PO SCH (21:05)
[2020-07-29] MEDS: TAMSULOSIN HCL 0.4 MG CAP PO SCH (21:05)
[2020-07-29] MEDS: FINASTERIDE 5 MG TABLET (PROSCAR) PO SCH (21:05)
[2020-07-30] VITALS: BP_SYST 135
--- NOTE | 2020-07-30 00:17 | NUR ---
Henok, PICC LINE NURSE arrived. Patient playing with leads, attempted to reorient. Will continue to monitor.
--- NOTE | 2020-07-30 00:56 | NUR ---
MIDLINE PLACEMENT: Midline placed to the right forearm by Henok PICC LINE NURSE. Patient tolerated well.
[2020-07-30] MEDS: KCL 20 mEq in D5/0.45NS 1000mL 1,000 ML IV SCH ×2 (01:04→12:29)
--- NOTE | 2020-07-30 04:09 | NUR ---
INCONTINENCE CARE Incontinence care provided. Patient is resting, still looking for something to tug or pull on. Reorientation not successful. Repositioning provided. Will continue to monitor.
[2020-07-30] MEDS: LEVOTHYROXINE SODIUM 0.15 MG TABLET PO SCH (05:22)
--- NOTE | 2020-07-30 06:27 | NUR ---
CLOSING NOTE Patient is resting, eyes closed, was endorsed that patient remains restless, and pulling at lines. Midline to the Right Upper arm, IVF running. No respiratory distress or pain noted. Lopes catheter draining by gravity, no kinks, no loops noted, bag not touching the floor, heels elevated with a pillow, seizure pads in place. Call light within reach, bed alarm on, bed at lowest position. Patient has been NPO since last night. All needs met throughout shift. Will endorse care to oncoming shift.
--- NOTE | 2020-07-30 07:30 | NUR ---
OPENING NOTES: RECEIVED PATIENT FROM PAPER TESTING SUPERVISOR NURSE. PATIENT IS ASLEEP LAYING DOWN IN BED. PATIENT IS TOLERATING OXYGEN ON ROOM AIR WITH NO SIGNS OF DISTRESS OR SHORTNESS OF BREATH NOTED. MIDLINE INTACT WITH CLEAN DRY DRESSING AND RUNNING FLUIDS ORDERED. LANZA CATHETER INTACT AND DRAINING BY GRAVITY. PATIENT ON SOFT WRIST RESTRAINTS DUE TO PATIENT BEING CONFUSED. NO SIGNS OF DECREASED CIRCULATION NOTED. PATIENT IN STABLE CONDITION. SAFETY, FALL, ASPIRATION AND SEIZURE PRECAUTIONS ARE IN PLACE. BED LOCKED IN LOWEST POSITION WITH CALL LIGHT IN REACH. WILL CONTINUE TO MONITOR PATIENT FOR ANY CHANGES.
[2020-07-30 08:09] VITALS: BP_SYST 148
[2020-07-30] MEDS: MULTIVITS,CA,MINERALS/IRON/FA 1 TABLET PO SCH (09:00)
--- NOTE | 2020-07-30 10:15 | NUR ---
RN ROUNDS: PATIENT IS AWAKE AND ALERT x 1 LAYING DOWN IN BED. PATIENT DENIES ANY PAIN AT THE MOMENT. PATIENT IS TOLERATING OXYGEN ON ROOM AIR WITH NO SIGNS OF DISTRESS OR SHORTNESS OF BREATH NOTED. PATIENT IS ON BILATERAL SOFT WRIST RESTRAINTS WITH NO SIGNS OF DECREASED CIRCULATION NOTED. PATIENT STILL NPO PENDING PEG PLACEMENT. AWAITING DR. BUCHANAN TO CALL BACK REGARDING MORNING MEDICATIONS. LANZA INTACT AND DRAINING BY GRAVITY. PATIENT IN STABLE CONDITION. WILL CONTINUE TO MONITOR PATIENT FOR ANY CHANGES.
--- NOTE | 2020-07-30 10:30 | NUR ---
GI DOCTOR PAGED [facility] CALLED AT [phone]SHARMA NG ANKUSH SAND SLINGER OPERATOR.
[2020-07-30] MEDS: BALSAM PERU/CASTOR OIL 60 GM OINT...G. TP SCH (10:31)
[2020-07-30] MEDS: DIPHENHYDRAMINE HCL/ZINC ACET 28.3 GM CREAM.GM. TP SCH ×3 (10:32→20:54)
[2020-07-30] MEDS: PANTOPRAZOLE SODIUM 40 MG TAB PO SCH (10:45)
[2020-07-30] MEDS: QUEtiapine FUMARATE 25 MG TABLET PO SCH ×2 (10:45→20:53)
[2020-07-30] MEDS: VALPROIC ACID ORAL SYRUP 250 MG/5 ML UDC PO SCH ×2 (10:45→20:54)
[2020-07-30] MEDS: METOPROLOL SUCCINATE 25 MG TAB.SR.24H (TOPROL XL) PO SCH (10:46)
[2020-07-30 12:10] VITALS: BP_SYST 126
--- NOTE | 2020-07-30 12:21 | NUR ---
RN ROUNDS: PATIENT IS ASLEEP LAYING DOWN IN BED. PATIENT AWAKES WITH VERBAL STIMULI. PATIENT IS TOLERATING OXYGEN ON ROOM AIR WITH NO SIGNS OF DISTRESS OR SHORTNESS OF BREATH NOTED. PATIENT DENIES ANY PAIN. WOUND CARE DONE AT THIS TIME. PATIENT TOLERATED IT WELL. PATIENT IS ON BILATERAL SOFT WRIST RESTRAINTS DUE TO PATIENT BEING CONFUSED. NO SIGNS OF DECREASED CIRCULATION NOTED. PATIENT IN STABLE CONDITION. WILL CONTINUE TO MONITOR PATIENT FOR ANY CHANGES.
--- NOTE | 2020-07-30 14:25 | NUR ---
RN ROUNDS: PATIENT IS ASLEEP LAYING DOWN IN BED. PATIENT AWAKES WITH VERBAL STIMULI. PATIENT DENIES PAIN AT THE MOMENT. PATIENT IS RESTLESS AND ATTEMPTING TO WIGGLE OUT OF RESTRAINTS. PATIENT IS ON BILATERAL SOFT WRIST RESTRAINTS WITH NO SIGNS OF DECREASED CIRCULATION NOTED DUE TO PATIENT BEING CONFUSED. MIDLINE INTACT WITH CLEAN, DRY DRESSING. PATIENT IN STABLE CONDITION. WILL CONTINUE TO MONITOR PATIENT FOR ANY CHANGES.
[2020-07-30 16:14] VITALS: BP_SYST 118
--- NOTE | 2020-07-30 16:20 | NUR ---
RN ROUNDS: PATIENT IS AWAKE AND RESTLESS LAYING DOWN IN BED. PATIENT CONTINUES TO ATTEMPT TO REMOVE RESTRAINTS AND TAKE OFF CLOTHING. PATIENT IS TOLERATING OXYGEN ON ROOM AIR WITH NO SIGNS OF DISTRESS OR SHORTNESS OF BREATH NOTED. MIDLINE INTACT WITH CLEAN, DRY DRESSING. PATIENT ON BILATERAL SOFT WRIST RESTRAINTS WITH NO SIGNS OF DECREASED CIRCULATION NOTED. PATIENT IN STABLE CONDITION. WILL CONTINUE TO MONITOR PATIENT FOR ANY CHANGES.
--- NOTE | 2020-07-30 18:45 | NUR ---
CLOSING NOTES: PATIENT IS ASLEEP LAYING DOWN IN BED. PATIENT IS TOLERATING OXYGEN ON ROOM AIR WITH NO SIGNS OF DISTRESS OR SHORTNESS OF BREATH NOTED. MIDLINE INTACT WITH CLEAN DRY DRESSING AND RUNNING FLUIDS ORDERED. LANZA CATHETER INTACT AND DRAINING BY GRAVITY. PATIENT ON SOFT WRIST RESTRAINTS DUE TO PATIENT BEING CONFUSED. NO SIGNS OF DECREASED CIRCULATION NOTED. PATIENT IN STABLE CONDITION. SAFETY, FALL, ASPIRATION AND SEIZURE PRECAUTIONS REMAINED IN PLACE THROUGHOUT THE SHIRT. BED LOCKED IN LOWEST POSITION WITH CALL LIGHT IN REACH. WILL ENDORSE PATIENT CARE TO ONCOMING TACKING STITCH REMOVER NURSE.
--- NOTE | 2020-07-30 19:00 | NUR ---
FAMILY: SPOKE WITH XIN GUERRA REGARDING PEG PLACEMENT. SHE STATED HER AND HER SIBLINGS ARE STILL UNDECIDED. SHE INFORMED ME THAT SHE WOULD LIKE TO TRY AND BRING HIM SOME FOOD SO SHE CAN SEE IF HE WILL EAT IT. INFORMED HER THAT I WILL LET JOSS HOUSE KEEPER NURSE KNOW. INFORMED YASSINE MAYO REGARDING WHAT DAUGHTER SAID. WILL CALL DAUGHTER CHARLIE IN THE MORNING TO GET ANOTHER UPDATE REGARDING THEIR DECISION.
[2020-07-30 19:45] VITALS: BP_SYST 134
--- NOTE | 2020-07-30 19:45 | NUR ---
Opening notes Pt alert,awake, confused. No s/s distress noted. VSS, afebrile. IVF infusing at ordered rate ARI midline double lumen. Sin soft wrists restraints on, skin integrity intact. Lopes catheter draining to gravity with francesca urine. Bed low, locked, siderails up x4, alarm on. To monitor.
[2020-07-30] MEDS: TAMSULOSIN HCL 0.4 MG CAP PO SCH (20:53)
[2020-07-30] MEDS: FINASTERIDE 5 MG TABLET (PROSCAR) PO SCH (20:53)
[2020-07-30] MEDS: MIRTAZAPINE 15 MG TABLET PO SCH (20:54)
--- NOTE | 2020-07-30 21:55 | NUR ---
MD silver Sagastume rounds, informed re pt's daughter undecided re PEG placement and wants to try to bring food pt may like.
[2020-07-31] VITALS: BP_SYST 126
--- NOTE | 2020-07-31 00:20 | NUR ---
Rounds Pt asleep, no s/s distress noted. VSS, afebrile. IVF infusing at ordered rate ARI midline double lumen. Sin soft wrists restraints on, skin integrity intact. Lopes catheter draining to gravity with francesca urine. Sin legs dressing C/D/I. Bed low, locked, siderails up x4, alarm on. To monitor.
--- NOTE | 2020-07-31 02:00 | NUR ---
Pericare Pt incontinent of large soft BM, pericare/skin/alfonso care provided. Pt repositioned. To monitor.
[2020-07-31] MEDS: KCL 20 mEq in D5/0.45NS 1000mL 1,000 ML IV SCH ×2 (02:27→14:22)
--- NOTE | 2020-07-31 04:30 | NUR ---
Rounds Pt asleep, no s/s distress noted. IVF infusing at ordered rate ARI midline double lumen. Sin soft wrists restraints on, skin integrity intact. Lopes catheter draining to gravity with francesca urine. Bed low, locked, siderails up x4, alarm on. To monitor.
--- NOTE | 2020-07-31 06:05 | NUR ---
Closing notes Pt asleep, no s/s distress noted. IVF infusing at ordered rate ARI midline double lumen, dressing C/D/I. Sin soft wrists restraints on, skin integrity intact. Lopes catheter draining to gravity with francesca urine. Bed low, locked, siderails up x4, alarm on. To endorse to AM nurse.
[2020-07-31] MEDS: LEVOTHYROXINE SODIUM 0.15 MG TABLET PO SCH (06:20)
--- NOTE | 2020-07-31 07:30 | NUR ---
OPENING NOTES: RECEIVED PATIENT FROM CREW LEADER/CONTROL ROOM OPERATOR NURSE. PATIENT IS ASLEEP LAYING DOWN IN BED. PATIENT IS TOLERATING OXYGEN ON ROOM AIR WITH NO SIGNS OF DISTRESS OR SHORTNESS OF BREATH NOTED. MIDLINE INTACT WITH CLEAN DRY DRESSING AND RUNNING FLUIDS ORDERED. LANZA CATHETER INTACT AND DRAINING BY GRAVITY. PATIENT ON SOFT WRIST RESTRAINTS DUE TO PATIENT BEING CONFUSED. NO SIGNS OF DECREASED CIRCULATION NOTED. PATIENT IN STABLE CONDITION. SAFETY, FALL, ASPIRATION AND SEIZURE PRECAUTIONS ARE IN PLACE. BED LOCKED IN LOWEST POSITION WITH CALL LIGHT IN REACH. WILL CONTINUE TO MONITOR PATIENT FOR ANY CHANGES.
[2020-07-31 08:00] VITALS: BP_SYST 160
[2020-07-31] MEDS: PANTOPRAZOLE SODIUM 40 MG TAB PO SCH (08:33)
[2020-07-31] MEDS: METOPROLOL SUCCINATE 25 MG TAB.SR.24H (TOPROL XL) PO SCH (08:33)
[2020-07-31] MEDS: QUEtiapine FUMARATE 25 MG TABLET PO SCH ×2 (08:33→20:59)
[2020-07-31] MEDS: VALPROIC ACID ORAL SYRUP 250 MG/5 ML UDC PO SCH ×2 (08:33→20:59)
[2020-07-31] MEDS: BALSAM PERU/CASTOR OIL 60 GM OINT...G. TP SCH (08:35)
[2020-07-31] MEDS: DIPHENHYDRAMINE HCL/ZINC ACET 28.3 GM CREAM.GM. TP SCH ×3 (08:35→21:00)
[2020-07-31] MEDS: MULTIVITS,CA,MINERALS/IRON/FA 1 TABLET PO SCH (08:40)
--- NOTE | 2020-07-31 10:20 | NUR ---
RN ROUNDS: PATIENT IS ASLEEP LAYING DOWN IN BED. PATIENT IS CONTINUOUSLY RESTLESS AND SCRATCHING HIS BODY. PATIENT REPOSITIONED AND TOLERATED IT WELL. PATIENT IS ON BILATERAL SOFT WRIST RESTRAINTS DUE TO PATIENT BEING CONFUSED AND PULLING THINGS OUT. NO SIGNS OF DECREASED CIRCULATION NOTED. LANZA CATHETER INTACT AND DRAINING BY GRAVITY. PATIENT IN STABLE CONDITION. WILL CONTINUE TO MONITOR PATIENT FOR ANY CHANGES.
[2020-07-31 11:24] VITALS: BP_SYST 121
--- NOTE | 2020-07-31 11:29 | NUR ---
DC PLANNING Called & spoke with Dr Sagastume regarding dc planning. Family still not wanting PEG. States will come in later today & discuss with family plan of care, possible Hospice, possible back to [facility]. Addendum: 07/31/20 at 1459 by Georgia Lewis RN Discussed dc plan with Dr Sagastume, aware pt not eating & family not wanting PEG. Gave order to dc back to [facility]. States he will speak with family.
--- NOTE | 2020-07-31 12:09 | NUR ---
WOUND RE-EVALUATION: Patient received in a Maynor Bed with an Isoflex NICO mattress with low air-loss therapy initiated, awake, alert, and confused. Patient is unable to turn in bed independently. Leo Score is a 14. Past Medical History: Psychiatric disorder, Dementia, Schizophrenia Paranoia, Benign Prostatic Hypertrophy, Chronic Kidney Disease, Atrial Fibrillation, Seizure disorder, Gastroesophageal Reflux Disorder, Hypothyroidism, Anemia, bilateral heel Unstageable Pressure Ulcers. Microbiology: Blood culture results x2 in progress. Intrinsic factors that delay wound healing: Chronic Kidney Disease, Atrial Fibrillation, Anemia, severe Hypoalbuminemia. Extrinsic factors that delay wound healing: Decreased mobility. Wound Assessment: 1. Left Posterior Heel: Unstageable pressure ulcer, present on admission. Wound bed has 95% black soft eschar, 5% yellow soft eschar, peeling off with yellow slough underneath. No odor, scant yellow purulent drainage. Periwound intact. Wound measures 2.2 cm x 2.3 cm. Recommend continue: Cleanse wound with normal saline. Apply moisture barrier cream to periwound. Apply Venelex ointment to eschar and wound bed underneath peeling eschar area. Cover with foam dressing. Wrap with Oscar wrap. Perform wound care daily, and as needed for dressing soiling or dislodgment. Elevate and offload and float heel at all times with HeeLift boot. Check HeeLift boot during hourly rounds to ensure that heel is freely floating within HeeLift. 2. Right Lateral Posterior Heel: Unstageable pressure ulcer, present on admission. Wound bed has 95% black eschar, 5% yellow eschar. No odor, no drainage. Dry, stable. Periwound intact. Wound measures 2.4 cm x 2.0 cm. Recommend continue: Cover site with foam dressing. Change dressing and assess site daily, and as needed for dressing soiling or dislodgment. Elevate and offload and float heel at all times with HeeLift boot. Check HeeLift boot during hourly rounds to ensure that heel is freely floating within HeeLift. 3. Left Lateral Knee: Chronic wound, present admission. Site has pink scar tissue. No odor, no drainage. 4. Left Lateral Knee, inferior and medial to site 3 Chronic wound, present admission. Wound has 100% black scab. No odor, no drainage. Dry, stable. Periwound intact. Wound measures 0.2 cm x 0.2 cm. Recommend continue: No dressings needed. Continue to monitor sites every shift. 5. Right fourth toe: Chronic wound, present admission. Wound has 100% black scab. No odor, no drainage. Dry, stable. Periwound intact. Wound measures 0.4 cm x 0.3 cm. Recommend continue: No dressing needed. Continue to monitor site every shift. Also recommend continue: Reposition patient every 2 hours with pillow support and off-load pressure areas with pillows for pressure re-distribution. Offload, elevate and float bilateral heels with pillows. Perform skin care and monitor skin integrity Q shift. Use moisture barrier cream on buttocks and other moisture susceptible areas QID and as needed for soiling. Maintain patient on a low air-loss mattress.
--- NOTE | 2020-07-31 12:12 | NUR ---
RN ROUNDS: PATIENT IS ASLEEP LAYING DOWN IN BED. PATIENT AWAKES WITH VERBAL STIMULI AND BECOMES RESTLESS. PATIENT DENIES ANY PAIN AT THE MOMENT. WOUND CARE DONE WITH WOUND CARE NURSE JASPREET. MIDLINE INTACT WITH CLEAN, DRY DRESSING AND RUNNING FLUIDS ORDERED. PATIENT ON BILATERAL SOFT WRIST RESTRAINTS DUE TO PATIENT BEING CONFUSED. NO SIGNS OF DECREASED CIRCULATION NOTED. PATIENT IN STABLE CONDITION. WILL CONTINUE TO MONITOR PATIENT FOR ANY CHANGES.
--- NOTE | 2020-07-31 14:41 | NUR ---
RN ROUNDS: PATIENT IS ASLEEP LAYING DOWN IN BED. PATIENT AWAKES WITH VERBAL STIMULI. PATIENT IS ON BILATERAL SOFT WRIST RESTRAINTS DUE TO PATIENT BEING CONFUSED. NO SIGNS OF DECREASED CIRCULATION NOTED. MIDLINE INTACT WITH CLEAN, DRY DRESSING NOTED AND RUNNING FLUIDS ORDERED. PATIENT WAS CLEANED, CHANGED AND REPOSITIONED. PATIENT TOLERATED IT WELL. PATIENT IN STABLE CONDITION. WILL CONTINUE TO MONITOR PATIENT FOR ANY CHANGES.
[2020-07-31 15:36] VITALS: BP_SYST 127
--- NOTE | 2020-07-31 15:45 | NUR ---
Discharge Planning: TERRY faxed patient referral to [facility] ([phone]) TERRY to follow up Addendum: 07/31/20 at 1626 by Doreen FLORES TERRY followed up on patient referral to [facility] ([phone]) per Jay patient will go to [id number], TERRY made CM aware.
--- NOTE | 2020-07-31 16:05 | NUR ---
RN ROUNDS: PATIENT IS ASLEEP LAYING DOWN IN BED. PATIENT IS TOLERATING OXYGEN ON ROOM AIR WITH NO SIGNS OF DISTRESS OR SHORTNESS OF BREATH NOTED. MIDLINE INTACT WITH CLEAN, DRY DRESSING AND RUNNING FLUIDS ORDERED. PATIENT ON BILATERAL SOFT WRIST RESTRAINTS DUE TO PATIENT BEING CONFUSED. NO SIGNS OF DECREASED CIRCULATION NOTED. PATIENT IN STABLE CONDITION. WILL CONTINUE TO MONITOR PATIENT FOR ANY CHANGES.
--- NOTE | 2020-07-31 17:14 | NUR ---
Nutrition F/U RD reviewed pt's current EMR record including diet Hx, physician notes, nursing notes, pertinent labs/meds/procedures, care trends, and care activity. Admission Dx: Dehydration PMH: Pt presents w/: Severe Dehydration, Lactic acidosis, Metabolic encephalopathy, Chronic dementia, Paranoid schizophrenia, CKD, Atrial fibrillation, BPH, Seizure disorder, GERD, Hypothyroidism, Anemia, bilateral Heel Unstageable ulcer per MD notes. SARS-CoV-2 Ag Rapid 07/20 Negative COVID-19 PCR 07/21 Negative 07/23 ST swallow eval: pt is at very high risk for malnutrition and dehydration; unable to fully r/o risk for aspiration; ST rec for alternative method for nutrition/hydration per EMR Current Diet Order/Nutrition Support: Mechanical soft x10 days Subjective Info: RD spoke w/ pt's RN who reported that pt 's family is refusing PEG, and pt continue w/ poor PO intakes. Plan is for pt to D/C to SNF per RN report. Pt is at increased risk for malnutrition Pertinent Lab/Medications: Reviewed Skin Integrity Comment: Leo scale: 12; per Tent[facility] note 07/31: 1. Left Posterior Heel: Unstageable pressure ulcer, present on admission. 2. Right Lateral Posterior Heel: Unstageable pressure ulcer, present on admission. 3. Left Lateral Knee: Chronic wound, present admission. 4. Left Lateral Knee, inferior and medial to site 3 Chronic wound, present admission. 5. Right fourth toe: Chronic wound, present admission. Current % PO Negligible <25% since 07/28 Estimated Energy Expenditure (kcals/day) 5230-1940 Kcal/day (25-30 kcal/kg IBW for maintenance) Estimated Protein Required (g/day) 67-80 gm/day (1-1.2 gm/kg IBW for Renal Dz predialysis, geriatric status) Estimated Fluid Required (l/day) per MD (CKD) Problem/Etiology/Signs/Symptoms Altered nutrition related labs r/t renal dysfunction AEB elevated Na+ and BUN lab values, Hx of CKD. *ongoing Predicted suboptimal nutrient intake r/t poor appetite 2/2 cognitive limitations AEB negligible PO intake <10% of meals and altered mental status. *ongoing Expected Outcomes/Goals Monitor appetite and PO intake/initiation of nutrition support w/ goal of pt meeting more than 75% of estimated nutritional needs, labs trending WNL, normal GI function, skin integrity/wt maintenance. Dietitian Recommendations * If family reconsiders PEG placement, consider Jevity 1.2 at 60 ml/hr (goal rate) via GT Provides: 1728 kcal/day, 80 gm protein/day, and 1162 ml free water/day Meets: 103% of lower end of estimated caloric needs and 100% of upper end of estimated protein needs * Consider NPO and ST swallow re-eval Follow Up High Risk: F/U in 2-3 days
--- NOTE | 2020-07-31 17:18 | NUR ---
Dietitian Recommendations * If family reconsiders PEG placement, consider Jevity 1.2 at 60 ml/hr (goal rate) via GT Provides: 1728 kcal/day, 80 gm protein/day, and 1162 ml free water/day Meets: 103% of lower end of estimated caloric needs and 100% of upper end of estimated protein needs * Consider NPO and ST swallow re-eval LP, RD Please refer to Nutrition F/U for details.
--- NOTE | 2020-07-31 18:40 | NUR ---
CLOSING NOTES: PATIENT IS ASLEEP LAYING DOWN IN BED. PATIENT IS TOLERATING OXYGEN ON ROOM AIR WITH NO SIGNS OF DISTRESS OR SHORTNESS OF BREATH NOTED. MIDLINE INTACT WITH CLEAN DRY DRESSING AND RUNNING FLUIDS ORDERED. LANZA CATHETER INTACT AND DRAINING BY GRAVITY. PATIENT ON SOFT WRIST RESTRAINTS DUE TO PATIENT BEING CONFUSED. NO SIGNS OF DECREASED CIRCULATION NOTED. AWAITING DR. KOLB TO ASK ABOUT DISCHARGE. PATIENT HAS BED AT [facility]. MEDICATIONS NEED TO BE COMPLETED FOR TRANSFER. UNABLE TO TAKE PICTURES OF WOUNDS. WILL ENDORSE TO ARM REST BUILDER NURSE. PATIENT IN STABLE CONDITION. SAFETY, FALL, ASPIRATION AND SEIZURE PRECAUTIONS REMAINED IN PLACE THROUGHOUT THE SHIRT. BED LOCKED IN LOWEST POSITION WITH CALL LIGHT IN REACH. WILL ENDORSE PATIENT CARE TO ONCOMING ARM REST BUILDER NURSE.
--- NOTE | 2020-07-31 18:50 | NUR ---
ROUNDS: DR. KOLB MAKING HIS ROUNDS. AWARE OF PATIENT'S CONDITION. NEW ORDER TO DC LANZA AND TO KEEP MIDLINE FOR TRANSFER TO [facility] [place]. WILL ENDORSE THE DISCONTINUANCE OF LANZA TO EP SPECIALIST NURSE.
--- NOTE | 2020-07-31 19:26 | NUR ---
Called [facility], s/w Viktor, ETA [phone]
--- NOTE | 2020-07-31 19:30 | NUR ---
opening note late entry d/t patient care; Patient stable, nonlabored breathing on room air. bed locked in lowest position, side rails up
[2020-07-31 20:00] VITALS: BP_SYST 120
[2020-07-31] MEDS: MIRTAZAPINE 15 MG TABLET PO SCH (20:59)
[2020-07-31] MEDS: TAMSULOSIN HCL 0.4 MG CAP PO SCH (20:59)
[2020-07-31] MEDS: FINASTERIDE 5 MG TABLET (PROSCAR) PO SCH (21:00)
[2020-07-31 21:07] VITALS: BP_SYST 120
--- NOTE | 2020-07-31 21:20 | NUR ---
report called late entry d/t patient care Called report to [facility], s/w nurse YASSINE Perales
--- NOTE | 2020-07-31 21:25 | NUR ---
wound care / pictures late entry d/t patient care wound care and pictures taken
--- NOTE | 2020-07-31 21:50 | NUR ---
Discharge -Transferred late entry d/t patient care Report given to EMT from [facility] . Transfer packet with Transfer Orders and Medication Reconciliation form given to EMT with report. Exitcare provided. [facility] ID band removed, replaced with ID band with pt's name and . Patient sent with midline to [facility]. No belongings. Lopes catheter was removed, tip intact. Patient left floor via gurney escorted by EMT in no distress.
== END 2020-07-31 21:50 | DRG 682 ==
LOC: SED 23:14 → STU 07-21 00:40 → SMU 07-30 22:03
PROVIDERS: ADMIT Family Medicine; ATTEND Family Medicine
PROC: 05HY33Z Insertion of Infusion Device into Upper Vein, Percutaneous Approach (ICD-10-PCS; principal; 2020-07-30)
DX: N17.9 Acute kidney failure, unspecified (principal); G93.41 Metabolic encephalopathy; E87.0 Hyperosmolality and hypernatremia; F20.0 Paranoid schizophrenia; E87.2 Acidosis; E87.1 Hypo-osmolality and hyponatremia; F03.91 Unspecified dementia, unspecified severity, with behavioral disturbance; E86.0 Dehydration; N18.9 Chronic kidney disease, unspecified; Z20.828 Contact with and (suspected) exposure to other viral communicable diseases; R62.7 Adult failure to thrive; E87.8 Other disorders of electrolyte and fluid balance, not elsewhere classified; N40.0 Benign prostatic hyperplasia without lower urinary tract symptoms; I48.91 Unspecified atrial fibrillation; L89.610 Pressure ulcer of right heel, unstageable; G40.909 Epilepsy, unspecified, not intractable, without status epilepticus; L89.620 Pressure ulcer of left heel, unstageable; I12.9 Hypertensive chronic kidney disease with stage 1 through stage 4 chronic kidney disease, or unspecified chronic kidney disease; F32.9 Major depressive disorder, single episode, unspecified; K21.9 Gastro-esophageal reflux disease without esophagitis; E03.9 Hypothyroidism, unspecified; D64.9 Anemia, unspecified; Z79.899 Other long term (current) drug therapy; Z68.21 Body mass index [BMI] 21.0-21.9, adult; Z78.1 Physical restraint status; Z79.01 Long term (current) use of anticoagulants; Z86.19 Personal history of other infectious and parasitic diseases
CPT/HCPCS: 36415; 71045; 80048; 80053; 80164-TC; 81000-TC; 81003; 83605; 83735-TC; 84100-TC; 84484; 85025; 85610-TC; 85730-TC; 87040-TC; 87081; 92610-GN; 93005; 96361; 96365; 96375; 99285; C1751; G0378; J0696; J1200; J2060; J3480; J7060; U0003